=== PATIENT | male | born 1950 | race Caucasian/White ===

== ENCOUNTER 2020-08-02 11:19 | Outpatient (REF) | payer MEDICARE, SELFPAY ==
[2020-08-02 12:18] LABS: MANUAL DIFF FLAG NO
[2020-08-02 12:21] LABS: Basophils Percent Auto 0.4 % (0-2); Eosinophils Absolute Auto 0.1 X10*3/uL (0.0-0.4); Eosinophils Percent Auto 2.4 % (0-4); Hemoglobin 11.5 g/dl (14.0-18.0); Imm Gran Abs Auto 0.01 X10*3/uL (0.00-0.03); Imm Gran Pct Auto 0.2 % (0.0-0.4); Lymphocytes Absolute Auto 2.1 X10*3/uL (1.2-4.9); Lymphocytes Percent Auto 38.7 % (20-40); Mean Corpuscular HGB Conc 32.9 g/dl (31.0-36.0); Mean Corpuscular Hemoglobin 31.3 pg (27.0-33.0); Mean Corpuscular Volume 95.1 fL (80-98); Mean Platelet Volume 9.4 fL (9.4-12.4); Monocytes Absolute Auto 0.6 X10*3/uL (0.1-1.2); Monocytes Percent Auto 10.1 % (2-11); Neutrophils Absolute Auto 2.6 X10*3/uL (2.0-8.3); Neutrophils Percent Auto 48.2 % (45-73); Platelet Count 217 X10*3/uL (160-400); Red Blood Count 3.68 X10*6/uL (4.60-5.80); Red Cell Distribution Width 12.5 % (11.0-16.0); White Blood Count 5.4 X10*3/uL (4.8-10.8)
[2020-08-02 12:47] LABS: Glucose Urine UA NEG (NEG); Leukocyte Esterase Urine NEG (NEG); Nitrite Urine NEG (NEG); PH 6.5 (5.0-8.0); Urine Blood TRACE (NEG); Urine Ketones NEG (NEG); Urine Protein NEG (NEG-TRACE)
[2020-08-02 12:48] LABS: Appearance Urine HAZY; Color Urine YELLOW
[2020-08-02 12:59] LABS: Alanine Aminotransferase 18 U/L (0-40); Alkaline Phosphatase 51 U/L (39-117); Anion Gap 11 (12-20); Aspartate Amino Transferase 17 U/L (5-37); Bilirubin Total 0.6 mg/dL (0.0-1.0); Blood Urea Nitrogen 22 mg/dL (9-16); Calcium 9.2 mg/dL (8.4-10.2); Carbon Dioxide 27 mmol/L (22-29); Chloride 105 mmol/L (96-108); Cholesterol 119 mg/dL; Estimated Glomerular Filt Rate > 60; Glucose Fasting 193 mg/dL (60-99); HDL Cholesterol 51 mg/dL; LDL Cholesterol Calculated 58 mg/dl; Potassium 5.4 mmol/l (3.3-5.1); Sodium 138 mmol/L (135-145); Total Protein 6.1 g/dL (6.5-8.0); Triglycerides 51 mg/dL
[2020-08-02 13:04] LABS: RBC Urine 0-2 /HPF (0); Squamous Epithelial Cell Urine TRACE /LPF; WBC Urine 0 /HPF (0-4)
[2020-08-02 13:12] LABS: Creatinine Urine 103.56 mg/dL; Microalbum/Creatinine Ratio Ur 4.8 ug/mg cr
[2020-08-02 13:21] LABS: TSH reflex Free T4 2.22 mIU/mL (0.32-4.0)
[2020-08-02 13:27] LABS: Estimated Average Glucose 166 mg/dL; Hemoglobin A1c % 7.4 %
== END 2020-08-02 11:20 | disposition home or self-care (01) ==
LOC: HO.LABR 11:19
PROVIDERS: PCP Internal Medicine; Visit Provider Internal Medicine
DX: I12.9 Hypertensive chronic kidney disease with stage 1 through stage 4 chronic kidney disease, or unspecified chronic kidney disease (principal); E11.22 Type 2 diabetes mellitus with diabetic chronic kidney disease; N18.30 Chronic kidney disease, stage 3 unspecified; E78.5 Hyperlipidemia, unspecified; E66.3 Overweight
CPT/HCPCS: 36415; 80053; 80061; 81001; 82043; 83036; 84443; 85025

== ENCOUNTER 2020-12-06 09:58 | Outpatient (REF) | payer MEDICARE, SELFPAY ==
[2020-12-06 10:49] LABS: MANUAL DIFF FLAG NO
[2020-12-06 10:56] LABS: Basophils Percent Auto 0.3 % (0-2); Eosinophils Absolute Auto 0.2 X10*3/uL (0.0-0.4); Eosinophils Percent Auto 2.8 % (0-4); Hematocrit 33.9 % (42-52); Hemoglobin 11.6 g/dl (14.0-18.0); Imm Gran Abs Auto 0.02 X10*3/uL (0.00-0.03); Imm Gran Pct Auto 0.3 % (0.0-0.4); Lymphocytes Absolute Auto 2.4 X10*3/uL (1.2-4.9); Lymphocytes Percent Auto 39.9 % (20-40); Mean Corpuscular HGB Conc 34.2 g/dl (31.0-36.0); Mean Corpuscular Hemoglobin 31.2 pg (27.0-33.0); Mean Corpuscular Volume 91.1 fL (80-98); Mean Platelet Volume 9.8 fL (9.4-12.4); Monocytes Absolute Auto 0.6 X10*3/uL (0.1-1.2); Monocytes Percent Auto 9.7 % (2-11); Neutrophils Absolute Auto 2.9 X10*3/uL (2.0-8.3); Platelet Count 215 X10*3/uL (160-400); Red Blood Count 3.72 X10*6/uL (4.60-5.80); Red Cell Distribution Width 12.6 % (11.0-16.0); White Blood Count 6.1 X10*3/uL (4.8-10.8)
[2020-12-06 11:05] LABS: Glucose Urine UA NEG (NEG); Leukocyte Esterase Urine NEG (NEG); Nitrite Urine NEG (NEG); PH 6.5 (5.0-8.0); Urine Blood TRACE (NEG); Urine Ketones NEG (NEG); Urine Protein NEG (NEG-TRACE)
[2020-12-06 11:06] LABS: Appearance Urine CLEAR; Color Urine YELLOW
[2020-12-06 11:20] LABS: RBC Urine 0-2 /HPF (0); WBC Urine 0 /HPF (0-4)
[2020-12-06 11:21] LABS: Alanine Aminotransferase 19 U/L (0-40); Albumin Level 4.1 g/dL (3.5-5.0); Alkaline Phosphatase 58 U/L (39-117); Anion Gap 12 (12-20); Aspartate Amino Transferase 19 U/L (5-37); Bilirubin Total 0.7 mg/dL (0.0-1.0); Blood Urea Nitrogen 23 mg/dL (9-16); Calcium 9.1 mg/dL (8.4-10.2); Carbon Dioxide 26 mmol/L (22-29); Chloride 101 mmol/L (96-108); Cholesterol 124 mg/dL; Estimated Glomerular Filt Rate > 60; Glucose Fasting 196 mg/dL (60-99); HDL Cholesterol 54 mg/dL; LDL Cholesterol Calculated 57 mg/dl; Sodium 134 mmol/L (135-145); Total Protein 6.3 g/dL (6.5-8.0); Triglycerides 66 mg/dL
[2020-12-06 12:02] LABS: Creatinine Urine 86.19 mg/dL; Microalbumin Urine < 5.0 mg/L
== END 2020-12-06 09:59 | disposition home or self-care (01) ==
LOC: HO.LAB 09:58
PROVIDERS: PCP Internal Medicine; Visit Provider Internal Medicine
DX: E11.21 Type 2 diabetes mellitus with diabetic nephropathy (principal); I12.9 Hypertensive chronic kidney disease with stage 1 through stage 4 chronic kidney disease, or unspecified chronic kidney disease; N18.31 Chronic kidney disease, stage 3a; E78.00 Pure hypercholesterolemia, unspecified; E66.3 Overweight
CPT/HCPCS: 36415; 80053; 80061; 81001; 81003; 82043; 84443; 85025

== ENCOUNTER → 2021-01-09 15:07 | Outpatient (BNVA) | payer MEDICARE, SELFPAY | PROVIDERS: Visit Provider Orthopaedic Surgery | DX: M72.0 Palmar fascial fibromatosis [Dupuytren] (principal) | CPT/HCPCS: 99202 ==

== ENCOUNTER 2021-04-12 08:41 | Outpatient (REF) | payer MEDICARE, SELFPAY ==
[2021-04-12 09:24] LABS: MANUAL DIFF FLAG NO
[2021-04-12 09:29] LABS: Basophils Percent Auto 0.4 % (0-2); Eosinophils Absolute Auto 0.2 X10*3/uL (0.0-0.4); Eosinophils Percent Auto 2.6 % (0-4); Hemoglobin 11.5 g/dl (14.0-18.0); Imm Gran Abs Auto 0.02 X10*3/uL (0.00-0.03); Imm Gran Pct Auto 0.3 % (0.0-0.4); Lymphocytes Absolute Auto 2.8 X10*3/uL (1.2-4.9); Mean Corpuscular HGB Conc 32.9 g/dl (31.0-36.0); Mean Corpuscular Hemoglobin 31.2 pg (27.0-33.0); Mean Corpuscular Volume 94.9 fL (80-98); Mean Platelet Volume 9.5 fL (9.4-12.4); Monocytes Absolute Auto 0.8 X10*3/uL (0.1-1.2); Monocytes Percent Auto 9.4 % (2-11); Neutrophils Absolute Auto 4.2 X10*3/uL (2.0-8.3); Neutrophils Percent Auto 52.3 % (45-73); Platelet Count 208 X10*3/uL (160-400); Red Blood Count 3.69 X10*6/uL (4.60-5.80); Red Cell Distribution Width 13.2 % (11.0-16.0)
[2021-04-12 09:37] LABS: Estimated Average Glucose 180 mg/dL; Hemoglobin A1c % 7.9 %
[2021-04-12 09:52] LABS: Alanine Aminotransferase 18 U/L (0-40); Albumin Level 4.2 g/dL (3.5-5.0); Alkaline Phosphatase 51 U/L (39-117); Anion Gap 12 (12-20); Aspartate Amino Transferase 21 U/L (5-37); Bilirubin Total 0.9 mg/dL (0.0-1.0); Blood Urea Nitrogen 35 mg/dL (9-16); Calcium 9.6 mg/dL (8.4-10.2); Carbon Dioxide 25 mmol/L (22-29); Chloride 107 mmol/L (96-108); Cholesterol 117 mg/dL; Estimated Glomerular Filt Rate 56; Glucose Fasting 177 mg/dL (60-99); HDL Cholesterol 45 mg/dL; LDL Cholesterol Calculated 58 mg/dl; Potassium 4.7 mmol/L (3.3-5.1); Sodium 139 mmol/L (135-145); Total Protein 6.5 g/dL (6.5-8.0); Triglycerides 72 mg/dL
[2021-04-12 10:14] LABS: TSH reflex Free T4 1.75 uIU/mL (0.32-4.0)
[2021-04-12 11:18] LABS: Glucose Urine UA NEG (NEG); Leukocyte Esterase Urine NEG (NEG); Nitrite Urine NEG (NEG); Specific Gravity - Urine 1.025 (1.005-1.025); Urine Blood NEG (NEG); Urine Ketones 5 MG/DL (NEG); Urine Protein NEG (NEG-TRACE)
[2021-04-12 11:32] LABS: Appearance Urine CLEAR; Color Urine YELLOW; Microalbum/Creatinine Ratio Ur 13.1 ug/mg cr
== END 2021-04-12 08:42 | disposition home or self-care (01) ==
LOC: HO.LAB 08:41
PROVIDERS: PCP Internal Medicine; Visit Provider Internal Medicine
DX: I12.9 Hypertensive chronic kidney disease with stage 1 through stage 4 chronic kidney disease, or unspecified chronic kidney disease (principal); N18.31 Chronic kidney disease, stage 3a; E11.22 Type 2 diabetes mellitus with diabetic chronic kidney disease; E11.21 Type 2 diabetes mellitus with diabetic nephropathy; E78.00 Pure hypercholesterolemia, unspecified; E66.3 Overweight
CPT/HCPCS: 36415; 80053; 80061; 81003; 82043; 83036; 84443; 85025

== ENCOUNTER 2021-09-07 10:19 | Outpatient (REF) | payer MEDICARE, SELFPAY ==
[2021-09-07 10:31] LABS: MANUAL DIFF FLAG NO
[2021-09-07 10:53] LABS: Basophils Percent Auto 0.4 % (0-2); Eosinophils Absolute Auto 0.3 X10*3/uL (0.0-0.4); Eosinophils Percent Auto 4.4 % (0-4); Hematocrit 34.7 % (42.0-52.0); Hemoglobin 11.7 g/dl (14.0-18.0); Imm Gran Abs Auto 0.04 X10*3/uL (0.00-0.03); Imm Gran Pct Auto 0.5 % (0.0-0.4); Lymphocytes Absolute Auto 2.7 X10*3/uL (1.2-4.9); Lymphocytes Percent Auto 35.6 % (20-40); Mean Corpuscular HGB Conc 33.7 g/dl (31.0-36.0); Mean Corpuscular Hemoglobin 31.6 pg (27.0-33.0); Mean Corpuscular Volume 93.8 fL (80.0-98.0); Mean Platelet Volume 9.8 fL (9.4-12.4); Monocytes Absolute Auto 0.7 X10*3/uL (0.1-1.2); Monocytes Percent Auto 9.6 % (2-11); Neutrophils Absolute Auto 3.8 x10*3/uL (2.0-8.3); Neutrophils Percent Auto 49.5 % (45-73); Platelet Count 227 X10*3/uL (160-400); Red Cell Distribution Width 12.7 % (11.0-16.0); White Blood Count 7.7 X10*3/uL (4.8-10.8)
[2021-09-07 11:08] LABS: Estimated Average Glucose 189 mg/dL; Hemoglobin A1c % 8.2 %
[2021-09-07 11:27] LABS: Appearance Urine CLEAR; Color Urine YELLOW; Glucose Urine UA NEG (NEG); Leukocyte Esterase Urine NEG (NEG); Nitrite Urine NEG (NEG); PH 5.5 (5.0-8.0); UACC Culture Trigger NO; Urine Blood TRACE (NEG); Urine Ketones NEG (NEG); Urine Protein NEG (NEG-TRACE)
[2021-09-07 11:37] LABS: Squamous Epithelial Cell Urine TRACE /LPF; WBC Urine 0-2 /HPF (0-4)
[2021-09-07 11:48] LABS: Alanine Aminotransferase 20 U/L (0-40); Albumin Level 4.1 g/dL (3.5-5.0); Alkaline Phosphatase 58 U/L (39-117); Anion Gap 11 (12-20); Aspartate Amino Transferase 18 U/L (5-37); Bilirubin Total 0.7 mg/dL (0.0-1.0); Blood Urea Nitrogen 29 mg/dL (9-16); Calcium 9.5 mg/dL (8.4-10.2); Carbon Dioxide 26 mmol/L (22-29); Chloride 105 mmol/L (96-108); Cholesterol 129 mg/dL; Estimated Glomerular Filt Rate 59; Glucose Fasting 224 mg/dL (60-99); HDL Cholesterol 50 mg/dL; LDL Cholesterol Calculated 63 mg/dl; Potassium 4.8 mmol/L (3.3-5.1); Sodium 137 mmol/L (135-145); Total Protein 6.5 g/dL (6.5-8.0); Triglycerides 84 mg/dL
[2021-09-07 12:15] LABS: TSH reflex Free T4 3.12 uIU/mL (0.32-4.0)
[2021-09-07 12:19] LABS: Creatinine Urine 114.62 mg/dL; Microalbum/Creatinine Ratio Ur 5.2 ug/mg cr
== END 2021-09-07 10:20 | disposition home or self-care (01) ==
LOC: HO.LAB 10:19
PROVIDERS: PCP Internal Medicine; Visit Provider Internal Medicine
DX: I12.9 Hypertensive chronic kidney disease with stage 1 through stage 4 chronic kidney disease, or unspecified chronic kidney disease (principal); N18.31 Chronic kidney disease, stage 3a; E11.22 Type 2 diabetes mellitus with diabetic chronic kidney disease; E11.21 Type 2 diabetes mellitus with diabetic nephropathy; E66.3 Overweight; E78.00 Pure hypercholesterolemia, unspecified
CPT/HCPCS: 36415; 80053; 80061; 81001; 82043; 83036; 84443; 85025

== ENCOUNTER 2022-01-03 09:18 | Outpatient (REF) | payer OTHER, SELFPAY ==
[2022-01-03 09:46] LABS: MANUAL DIFF FLAG NO
[2022-01-03 10:02] LABS: Basophils Percent Auto 0.4 % (0-2); Eosinophils Absolute Auto 0.2 X10*3/uL (0.0-0.4); Hematocrit 34.6 % (42.0-52.0); Hemoglobin 11.5 g/dl (14.0-18.0); Imm Gran Abs Auto 0.03 X10*3/uL (0.00-0.03); Imm Gran Pct Auto 0.4 % (0.0-0.4); Lymphocytes Absolute Auto 2.7 X10*3/uL (1.2-4.9); Lymphocytes Percent Auto 34.6 % (20-40); Mean Corpuscular HGB Conc 33.2 g/dl (31.0-36.0); Mean Corpuscular Hemoglobin 30.7 pg (27.0-33.0); Mean Corpuscular Volume 92.5 fL (80.0-98.0); Mean Platelet Volume 9.5 fL (9.4-12.4); Monocytes Absolute Auto 0.7 X10*3/uL (0.1-1.2); Monocytes Percent Auto 9.4 % (2-11); Neutrophils Absolute Auto 4.2 x10*3/uL (2.0-8.3); Neutrophils Percent Auto 53.2 % (45-73); Platelet Count 226 X10*3/uL (160-400); Red Blood Count 3.74 X10*6/uL (4.60-5.80); Red Cell Distribution Width 12.8 % (11.0-16.0); White Blood Count 7.9 X10*3/uL (4.8-10.8)
[2022-01-03 10:39] LABS: Alanine Aminotransferase 22 U/L (0-40); Albumin Level 4.4 g/dL (3.5-5.0); Alkaline Phosphatase 57 U/L (39-117); Anion Gap 13 (12-20); Aspartate Amino Transferase 24 U/L (5-37); Bilirubin Total 0.8 mg/dL (0.0-1.0); Blood Urea Nitrogen 27 mg/dL (9-16); Calcium 9.7 mg/dL (8.4-10.2); Carbon Dioxide 24 mmol/L (22-29); Chloride 103 mmol/L (96-108); Cholesterol 134 mg/dL; Estimated Glomerular Filt Rate 48; Glucose Fasting 193 mg/dL (60-99); HDL Cholesterol 53 mg/dL; LDL Cholesterol Calculated 71 mg/dl; Sodium 135 mmol/L (135-145); Total Protein 6.9 g/dL (6.5-8.0); Triglycerides 50 mg/dL
[2022-01-03 10:44] LABS: Estimated Average Glucose 192 mg/dL; Hemoglobin A1c % 8.3 %
[2022-01-03 10:46] LABS: Appearance Urine CLEAR; Color Urine YELLOW; Glucose Urine UA NEG (NEG); Leukocyte Esterase Urine NEG (NEG); Nitrite Urine NEG (NEG); Urine Blood NEG (NEG); Urine Ketones NEG (NEG); Urine Protein NEG (NEG-TRACE)
[2022-01-03 10:53] LABS: TSH reflex Free T4 3.86 uIU/mL (0.32-4.0)
[2022-01-03 12:14] LABS: Creatinine Urine 129.68 mg/dL; Microalbum/Creatinine Ratio Ur 6.1 ug/mg cr
[2022-01-03 14:53] LABS: Vitamin D 25-OH Total 51.9 ng/mL (>30)
== END 2022-01-03 09:19 | disposition home or self-care (01) ==
LOC: HO.LAB 09:18
PROVIDERS: PCP Internal Medicine; Visit Provider Internal Medicine
DX: E78.00 Pure hypercholesterolemia, unspecified (principal); E55.9 Vitamin D deficiency, unspecified; E11.9 Type 2 diabetes mellitus without complications; I10 Essential (primary) hypertension
CPT/HCPCS: 36415; 80053; 80061; 81003; 82043; 82306; 83036; 84443; 85025

== ENCOUNTER 2022-03-25 09:52 | Outpatient (REF) | payer OTHER, SELFPAY ==
[2022-03-25 10:08] LABS: MANUAL DIFF FLAG NO
[2022-03-25 10:31] LABS: Basophils Percent Auto 0.5 % (0-2); Eosinophils Absolute Auto 0.2 X10*3/uL (0.0-0.4); Eosinophils Percent Auto 3.4 % (0-4); Hematocrit 32.8 % (42.0-52.0); Imm Gran Abs Auto 0.01 X10*3/uL (0.00-0.03); Imm Gran Pct Auto 0.2 % (0.0-0.4); Lymphocytes Absolute Auto 2.4 X10*3/uL (1.2-4.9); Lymphocytes Percent Auto 38.5 % (20-40); Mean Corpuscular HGB Conc 33.5 g/dl (31.0-36.0); Mean Corpuscular Hemoglobin 31.1 pg (27.0-33.0); Mean Corpuscular Volume 92.7 fL (80.0-98.0); Mean Platelet Volume 9.5 fL (9.4-12.4); Monocytes Absolute Auto 0.5 X10*3/uL (0.1-1.2); Monocytes Percent Auto 8.4 % (2-11); Neutrophils Absolute Auto 3.1 x10*3/uL (2.0-8.3); Platelet Count 210 X10*3/uL (160-400); Red Blood Count 3.54 X10*6/uL (4.60-5.80); Red Cell Distribution Width 12.7 % (11.0-16.0); White Blood Count 6.2 X10*3/uL (4.8-10.8)
[2022-03-25 11:00] LABS: Alanine Aminotransferase 21 U/L (0-40); Alkaline Phosphatase 53 U/L (39-117); Anion Gap 10 (12-20); Aspartate Amino Transferase 19 U/L (5-37); Bilirubin Total 0.6 mg/dL (0.0-1.0); Blood Urea Nitrogen 29 mg/dL (9-16); Calcium 9.3 mg/dL (8.4-10.2); Carbon Dioxide 25 mmol/L (22-29); Chloride 106 mmol/L (96-108); Cholesterol 117 mg/dL; Estimated Glomerular Filt Rate 56; Glucose Fasting 185 mg/dL (60-99); HDL Cholesterol 49 mg/dL; Iron 70 mcg/dL (45-160); LDL Cholesterol Calculated 58 mg/dl; Percent Iron Saturation 22 % (15-50); Potassium 5.4 mmol/L (3.3-5.1); Sodium 136 mmol/L (135-145); Total Iron Binding Capacity 320 mcg/dL (228-428); Total Protein 6.3 g/dL (6.5-8.0); Triglycerides 50 mg/dL; Unsaturated Iron Binding 250 ug/dL
[2022-03-25 11:06] LABS: Estimated Average Glucose 189 mg/dL; Hemoglobin A1c % 8.2 %
[2022-03-25 11:09] LABS: Appearance Urine CLEAR; Color Urine YELLOW; Glucose Urine UA NEG (NEG); Leukocyte Esterase Urine NEG (NEG); Nitrite Urine NEG (NEG); PH 5.5 (5.0-8.0); UACC Culture Trigger NO; Urine Blood TRACE (NEG); Urine Ketones NEG (NEG); Urine Protein NEG (NEG-TRACE)
[2022-03-25 11:21] LABS: Vitamin D 25-OH Total 42.7 ng/mL (>30)
[2022-03-25 11:22] LABS: Creatinine Urine 94.96 mg/dL; Microalbum/Creatinine Ratio Ur 6.3 ug/mg cr
[2022-03-25 11:27] LABS: Folate 19.1 ng/mL (> or = 4.0); Vitamin B12 670 pg/mL (200-900)
[2022-03-25 11:34] LABS: Renal Epithelial Cells Urine 1+ /LPF; WBC Urine 0 /HPF (0-4)
[2022-03-26 13:20] LABS: Erythropoietin (EPO) 13.4 mIU/mL (2.6-18.5)
== END 2022-03-25 09:53 | disposition home or self-care (01) ==
LOC: HO.LAB 09:52
PROVIDERS: PCP Internal Medicine; Visit Provider Internal Medicine
DX: E78.00 Pure hypercholesterolemia, unspecified (principal); I10 Essential (primary) hypertension; E11.9 Type 2 diabetes mellitus without complications; D50.9 Iron deficiency anemia, unspecified; E53.8 Deficiency of other specified B group vitamins; E55.9 Vitamin D deficiency, unspecified
CPT/HCPCS: 36415; 80053; 80061; 81001; 81003; 82043; 82306; 82607; 82668; 82746; 83036; 83540; 84443; 85025

== ENCOUNTER 2022-07-15 09:20 | Outpatient (REF) | payer OTHER, SELFPAY ==
[2022-07-15 09:33] LABS: MANUAL DIFF FLAG NO
[2022-07-15 10:20] LABS: Appearance Urine Clear; Color Urine Yellow; Glucose Urine UA Negative (Negative); Leukocyte Esterase Urine Negative (Negative); Nitrite Urine Negative (Negative); PH 5.5 (5.0-9.0); Urine Blood Negative (Negative); Urine Ketones Negative (Negative); Urine Protein Negative (Neg-Trace)
[2022-07-15 10:23] LABS: Basophils Percent Auto 0.4 % (0-2); Eosinophils Absolute Auto 0.2 X10*3/uL (0.0-0.4); Hematocrit 34.1 % (42.0-52.0); Hemoglobin 11.3 g/dl (14.0-18.0); Imm Gran Abs Auto 0.04 X10*3/uL (0.00-0.03); Imm Gran Pct Auto 0.4 % (0.0-0.4); Lymphocytes Absolute Auto 2.6 X10*3/uL (1.2-4.9); Lymphocytes Percent Auto 27.2 % (20-40); Mean Corpuscular HGB Conc 33.1 g/dl (31.0-36.0); Mean Corpuscular Hemoglobin 30.9 pg (27.0-33.0); Mean Corpuscular Volume 93.2 fL (80.0-98.0); Mean Platelet Volume 9.9 fL (9.4-12.4); Monocytes Absolute Auto 0.9 X10*3/uL (0.1-1.2); Monocytes Percent Auto 9.8 % (2-11); Neutrophils Absolute Auto 5.8 x10*3/uL (2.0-8.3); Neutrophils Percent Auto 60.2 % (45-73); Platelet Count 238 X10*3/uL (160-400); Red Blood Count 3.66 X10*6/uL (4.60-5.80); Red Cell Distribution Width 13.2 % (11.0-16.0); White Blood Count 9.6 X10*3/uL (4.8-10.8)
[2022-07-15 10:35] LABS: Estimated Average Glucose 177 mg/dL; Hemoglobin A1c % 7.8 %
[2022-07-15 10:55] LABS: Alanine Aminotransferase 20 U/L (0-40); Albumin Level 4.3 g/dL (3.5-5.0); Alkaline Phosphatase 65 U/L (39-117); Anion Gap 16 (12-20); Aspartate Amino Transferase 20 U/L (5-37); Bilirubin Total 0.5 mg/dL (0.0-1.0); Blood Urea Nitrogen 22 mg/dL (9-16); Calcium 9.4 mg/dL (8.4-10.2); Carbon Dioxide 25 mmol/L (22-29); Chloride 101 mmol/L (96-108); Cholesterol 108 mg/dL; Estimated Glomerular Filt Rate 56; Glucose Fasting 174 mg/dL (60-99); HDL Cholesterol 49 mg/dL; LDL Cholesterol Calculated 46 mg/dl; Potassium 5.4 mmol/L (3.3-5.1); Sodium 137 mmol/L (135-145); Total Protein 6.6 g/dL (6.5-8.0); Triglycerides 67 mg/dL
[2022-07-15 10:57] LABS: Creatinine Urine 119.14 mg/dL; Microalbum/Creatinine Ratio Ur 9.2 ug/mg cr
[2022-07-15 11:17] LABS: TSH reflex Free T4 4.07 uIU/mL (0.32-4.0); Vitamin D 25-OH Total 48.6 ng/mL (>30)
[2022-07-15 11:59] LABS: Free T4 (Free Thyroxine) 0.97 ng/dL (0.71-1.85)
== END 2022-07-15 09:21 | disposition home or self-care (01) ==
LOC: HO.LAB 09:20
PROVIDERS: PCP Internal Medicine; Visit Provider Internal Medicine
DX: E55.9 Vitamin D deficiency, unspecified (principal); E78.00 Pure hypercholesterolemia, unspecified; E11.9 Type 2 diabetes mellitus without complications; I10 Essential (primary) hypertension
CPT/HCPCS: 36415; 80053; 80061; 81003; 82043; 82306; 83036; 84439; 84443; 85025

== ENCOUNTER 2022-11-11 11:05 | Outpatient (REF) | payer OTHER, SELFPAY ==
[2022-11-11 11:24] LABS: MANUAL DIFF FLAG NO
[2022-11-11 12:10] LABS: Basophils Percent Auto 0.4 % (0-2); Eosinophils Absolute Auto 0.2 X10*3/uL (0.0-0.4); Eosinophils Percent Auto 2.9 % (0-4); Hematocrit 35.8 % (42.0-52.0); Hemoglobin 12.1 g/dl (14.0-18.0); Imm Gran Abs Auto 0.03 X10*3/uL (0.00-0.03); Imm Gran Pct Auto 0.4 % (0.0-0.4); Lymphocytes Percent Auto 40.4 % (20-40); Mean Corpuscular HGB Conc 33.8 g/dl (31.0-36.0); Mean Corpuscular Hemoglobin 31.1 pg (27.0-33.0); Mean Platelet Volume 9.7 fL (9.4-12.4); Monocytes Absolute Auto 0.6 X10*3/uL (0.1-1.2); Monocytes Percent Auto 8.2 % (2-11); Neutrophils Absolute Auto 3.6 x10*3/uL (2.0-8.3); Neutrophils Percent Auto 47.7 % (45-73); Platelet Count 232 X10*3/uL (160-400); Red Blood Count 3.89 X10*6/uL (4.60-5.80); Red Cell Distribution Width 12.8 % (11.0-16.0); White Blood Count 7.5 X10*3/uL (4.8-10.8)
[2022-11-11 12:15] LABS: Appearance Urine Clear; Color Urine Yellow; Glucose Urine UA Negative (Negative); Leukocyte Esterase Urine Negative (Negative); Nitrite Urine Negative (Negative); Urine Blood Negative (Negative); Urine Ketones Negative (Negative); Urine Protein Negative (Neg-Trace)
[2022-11-11 12:22] LABS: Estimated Average Glucose 212 mg/dL
[2022-11-11 12:54] LABS: Alanine Aminotransferase 17 U/L (0-40); Albumin Level 4.1 g/dL (3.5-5.0); Alkaline Phosphatase 63 U/L (39-117); Anion Gap 13 (12-20); Aspartate Amino Transferase 18 U/L (5-37); Bilirubin Total 0.7 mg/dL (0.0-1.0); Blood Urea Nitrogen 22 mg/dL (9-16); Calcium 9.5 mg/dL (8.4-10.2); Carbon Dioxide 26 mmol/L (22-29); Chloride 104 mmol/L (96-108); Cholesterol 123 mg/dL; Estimated Glomerular Filt Rate 58; Glucose Fasting 196 mg/dL (60-99); HDL Cholesterol 48 mg/dL; LDL Cholesterol Calculated 60 mg/dl; Potassium 4.7 mmol/L (3.3-5.1); Sodium 138 mmol/L (135-145); Total Protein 6.4 g/dL (6.5-8.0); Triglycerides 76 mg/dL
[2022-11-11 13:06] LABS: Creatinine Urine 145.59 mg/dL; Microalbum/Creatinine Ratio Ur 22.6 ug/mg cr
[2022-11-11 13:10] LABS: TSH reflex Free T4 4.58 uIU/mL (0.32-4.0)
[2022-11-11 15:36] LABS: Free T4 (Free Thyroxine) 0.98 ng/dL (0.71-1.85)
== END 2022-11-11 11:06 | disposition home or self-care (01) ==
LOC: HO.LAB 11:05
PROVIDERS: PCP Internal Medicine; Visit Provider Internal Medicine
DX: E78.00 Pure hypercholesterolemia, unspecified (principal); E11.9 Type 2 diabetes mellitus without complications; I10 Essential (primary) hypertension; R30.0 Dysuria; E55.9 Vitamin D deficiency, unspecified
CPT/HCPCS: 36415; 80053; 80061; 81003; 82043; 82306; 83036; 84439; 84443; 85025

== ENCOUNTER 2023-02-20 10:42 | Outpatient (REF) | payer OTHER, SELFPAY ==
[2023-02-20 10:55] LABS: MANUAL DIFF FLAG NO
[2023-02-20 11:02] LABS: Basophils Percent Auto 0.5 % (0-2); Eosinophils Absolute Auto 0.3 X10*3/uL (0.0-0.4); Eosinophils Percent Auto 3.9 % (0-4); Hematocrit 34.7 % (42.0-52.0); Hemoglobin 11.6 g/dl (14.0-18.0); Imm Gran Abs Auto 0.01 X10*3/uL (0.00-0.03); Imm Gran Pct Auto 0.2 % (0.0-0.4); Lymphocytes Absolute Auto 2.5 X10*3/uL (1.2-4.9); Lymphocytes Percent Auto 38.2 % (20-40); Mean Corpuscular HGB Conc 33.4 g/dl (31.0-36.0); Mean Corpuscular Hemoglobin 30.8 pg (27.0-33.0); Mean Platelet Volume 9.1 fL (9.4-12.4); Monocytes Absolute Auto 0.6 X10*3/uL (0.1-1.2); Monocytes Percent Auto 9.2 % (2-11); Neutrophils Absolute Auto 3.1 x10*3/uL (2.0-8.3); Platelet Count 222 X10*3/uL (160-400); Red Blood Count 3.77 X10*6/uL (4.60-5.80); Red Cell Distribution Width 12.8 % (11.0-16.0); White Blood Count 6.4 X10*3/uL (4.8-10.8)
[2023-02-20 11:13] LABS: Estimated Average Glucose 197 mg/dL; Hemoglobin A1c % 8.5 %
[2023-02-20 12:13] LABS: Alanine Aminotransferase 19 U/L (0-40); Albumin Level 4.2 g/dL (3.5-5.0); Alkaline Phosphatase 57 U/L (39-117); Anion Gap 13 (12-20); Aspartate Amino Transferase 23 U/L (5-37); Bilirubin Total 0.9 mg/dL (0.0-1.0); Blood Urea Nitrogen 26 mg/dL (9-16); Calcium 9.4 mg/dL (8.4-10.2); Carbon Dioxide 25 mmol/L (22-29); Chloride 104 mmol/L (96-108); Cholesterol 114 mg/dL; Estimated Glomerular Filt Rate 52; Glucose Fasting 175 mg/dL (60-99); HDL Cholesterol 50 mg/dL; LDL Cholesterol Calculated 57 mg/dl; Potassium 4.9 mmol/L (3.3-5.1); Sodium 137 mmol/L (135-145); Total Protein 6.4 g/dL (6.5-8.0); Triglycerides 35 mg/dL
[2023-02-20 12:34] LABS: Vitamin D 25-OH Total 54.5 ng/mL (>30)
[2023-02-20 12:35] LABS: Appearance Urine Clear; Color Urine Yellow; Glucose Urine UA Negative (Negative); Leukocyte Esterase Urine Negative (Negative); Nitrite Urine Negative (Negative); PH 5.5 (5.0-9.0); Specific Gravity - Urine 1.025 (1.005-1.025); Urine Blood Negative (Negative); Urine Ketones Trace mg/dL (Negative); Urine Protein Negative (Neg-Trace)
[2023-02-20 13:10] LABS: Creatinine Urine 203.72 mg/dL; Microalbum/Creatinine Ratio Ur 3.9 ug/mg cr
[2023-02-20 15:01] LABS: Free T4 (Free Thyroxine) 1.06 ng/dL (0.71-1.85)
== END 2023-02-20 10:43 | disposition home or self-care (01) ==
LOC: HO.LAB 10:42
PROVIDERS: PCP Internal Medicine; Visit Provider Internal Medicine
DX: R30.0 Dysuria (principal); E78.00 Pure hypercholesterolemia, unspecified; E11.9 Type 2 diabetes mellitus without complications; I10 Essential (primary) hypertension; E55.9 Vitamin D deficiency, unspecified
CPT/HCPCS: 36415; 80053; 80061; 81003; 82043; 82306; 83036; 84439; 84443; 85025

== ENCOUNTER 2023-06-02 09:48 | Outpatient (REF) | payer OTHER, SELFPAY ==
[2023-06-02 10:01] LABS: MANUAL DIFF FLAG NO
[2023-06-02 10:16] LABS: Basophils Percent Auto 0.6 % (0-2); Eosinophils Absolute Auto 0.2 X10*3/uL (0.0-0.4); Eosinophils Percent Auto 3.6 % (0-4); Hematocrit 33.7 % (42.0-52.0); Hemoglobin 11.2 g/dl (14.0-18.0); Imm Gran Abs Auto 0.02 X10*3/uL (0.00-0.03); Imm Gran Pct Auto 0.3 % (0.0-0.4); Lymphocytes Absolute Auto 2.5 X10*3/uL (1.2-4.9); Lymphocytes Percent Auto 37.7 % (20-40); Mean Corpuscular HGB Conc 33.2 g/dl (31.0-36.0); Mean Corpuscular Hemoglobin 31.4 pg (27.0-33.0); Mean Corpuscular Volume 94.4 fL (80.0-98.0); Mean Platelet Volume 9.5 fL (9.4-12.4); Monocytes Absolute Auto 0.6 X10*3/uL (0.1-1.2); Monocytes Percent Auto 8.9 % (2-11); Neutrophils Absolute Auto 3.2 x10*3/uL (2.0-8.3); Neutrophils Percent Auto 48.9 % (45-73); Platelet Count 238 X10*3/uL (160-400); Red Blood Count 3.57 X10*6/uL (4.60-5.80); Red Cell Distribution Width 13.1 % (11.0-16.0); White Blood Count 6.6 X10*3/uL (4.8-10.8)
[2023-06-02 10:48] LABS: Alanine Aminotransferase 15 U/L (0-40); Albumin Level 3.9 g/dL (3.5-5.0); Alkaline Phosphatase 47 U/L (39-117); Anion Gap 10 (12-20); Aspartate Amino Transferase 17 U/L (5-37); Bilirubin Total 0.5 mg/dL (0.0-1.0); Blood Urea Nitrogen 23 mg/dL (9-16); Calcium 9.6 mg/dL (8.4-10.2); Carbon Dioxide 27 mmol/L (22-29); Chloride 108 mmol/L (96-108); Cholesterol 115 mg/dL (<200); Estimated Glomerular Filt Rate 57; Glucose Fasting 141 mg/dL (60-99); HDL Cholesterol 52 mg/dL (>40); LDL Cholesterol Calculated 52 mg/dL (<100); Potassium 5.1 mmol/L (3.3-5.1); Sodium 140 mmol/L (135-145); Total Protein 6.4 g/dL (6.5-8.0); Triglycerides 57 mg/dL (<150)
[2023-06-02 10:50] LABS: Estimated Average Glucose 189 mg/dL; Hemoglobin A1c % 8.2 % (<6.0)
[2023-06-02 11:04] LABS: TSH reflex Free T4 4.24 uIU/mL (0.32-4.0); Vitamin D 25-OH Total 58.5 ng/mL (>30)
[2023-06-02 11:16] LABS: Folate 12.8 ng/mL (> or = 4.0); Vitamin B12 786 pg/mL (200-900)
[2023-06-02 11:48] LABS: Free T4 (Free Thyroxine) 0.82 ng/dL (0.71-1.85)
[2023-06-02 12:22] LABS: Appearance Urine Clear; Color Urine Yellow; Glucose Urine UA Negative (Negative); Leukocyte Esterase Urine Trace (Negative); Nitrite Urine Negative (Negative); PH 5.5 (5.0-9.0); UMIC TRIGGER UACC YES; Urine Blood Negative (Negative); Urine Ketones Trace mg/dL (Negative); Urine Protein Negative (Neg-Trace)
[2023-06-02 12:31] LABS: Bacteria Urine None Seen (None Seen); Hyaline Casts Urine 0-2 /LPF (0-2); RBC Urine 0-2 /HPF (0-2); Squamous Epithelial Cell Urine 0-2 /HPF (0-2); WBC Urine 0-5 /HPF (0-5)
[2023-06-02 13:33] LABS: Creatinine Urine 148.69 mg/dL
== END 2023-06-02 09:49 | disposition home or self-care (01) ==
LOC: HO.LAB 09:48
PROVIDERS: PCP Internal Medicine; Visit Provider Internal Medicine
DX: E55.9 Vitamin D deficiency, unspecified (principal); I10 Essential (primary) hypertension; E11.9 Type 2 diabetes mellitus without complications; E53.8 Deficiency of other specified B group vitamins; E78.00 Pure hypercholesterolemia, unspecified
CPT/HCPCS: 36415; 80053; 80061; 81001; 82043; 82306; 82607; 82746; 83036; 84439; 84443; 85025

== ENCOUNTER 2023-06-03 17:03 | Outpatient (AMB) | payer OTHER, SELFPAY ==
[2023-06-03 17:05] VITALS: BP 110/80; PULSE 67; O2SAT 98; BMI 23.8
--- NOTE | 2023-06-03 17:05 | A.OFFPC_ITS ---
Vital Signs 06/03/23 17:05 Height 5 ft 6 in Weight 147 lb 6 oz BMI 23.8 BP 110/80 Blood Pressure Location Lt brachial Position Sitting Pulse 67 Pulse Source Pulse Oximeter Pulse Oximetry (%) 98 Oxygen Delivery Method Room Air Intake Visit Reasons: DM, HTN, hyperlipidemia [employer] Required: No Accompanied by: Self / Same As Patient Allergies aspirin [Aspirin] Adverse Reaction (Severe, Verified 06/03/23 17:15) GI BLEEDING, GI bleed Medication List - Last Reconciled 06/03/23 by Umesh Sanchez MD atorvastatin 20 mg PO DAILY blood sugar diagnostic As directed- One touch strips use daily blood-glucose meter As directed- One Touch use daily [DIABETIC SHOES As directed] glipizide TAKE 1 TABLET BY MOUTH EVERY MORNING AND 2 TABLETS EVERY EVENING; lancets As directed One Touch use daily linagliptin (Tradjenta) 5 mg PO DAILY 90 days lisinopril 10 mg PO DAILY metformin 1,000 mg PO BID multivitamin (Daily Multi-Vitamin tablet) 1 tab PO DAILY pioglitazone 45 mg PO DAILY 90 days Tobacco use date assessed: 06/03/23 Fall risk assessment: No Falls in past year Last assessed Fall Risk: 06/03/23 Dental Screening Dental Screen Date: 06/03/23 Did you have a dental visit in the last 12 months?: Yes Did you have a dental problem in the last 6 months where you did not have access to dental care?: No Was dental information given to patient?: Patient has dentist HPI DM, HTN, hyperlipidemia HPI Details Patient comes in today for his follow up visit States that he feels okay He denies any headaches or dizziness Denies any chest pains, no SOB No nausea/vomiting, no abdominal pain No change in bowel habits noted Had his follow up labs done yesterday - to discuss his results [facility] Medical History Anemia Benign essential hypertension Chronic kidney disease (CKD), stage III (moderate) Dupuytren's contracture of both hands Overweight (BMI 25.0-29.9) Pure hypercholesterolemia Type 2 diabetes mellitus with diabetic chronic kidney disease Surgical History Hx of colonoscopy (~07/20/10) Family History Father Medical history unknown Mother Medical history unknown Social History Housing: House Alcohol intake: never Patient Tobacco Use Status: Former Tobacco user e-Cigarette/Vaping Use: Never Used Second Hand Smoke Exposure: Yes Current occupational status: retired Current occupation: retired [employer] Cognitive needs: No Hearing needs: Yes Vision needs: No Questionnaire PHQ-9 Over the last 2 weeks, how often have you been bothered by any of the following problems? 1. Little interest or pleasure in doing things: not at all 2. Feeling down, depressed, or hopeless: not at all 3. Trouble falling or staying asleep, or sleeping too much: not at all 4. Feeling tired or having little energy: not at all 5. Poor appetite or overeating: not at all 6. Feeling bad about yourself - or that you are a failure or have let yourself or your family down: not at all 7. Trouble concentrating on things, such as reading the newspaper or watching television: not at all 8. Moving or speaking so slowly that other people could have noticed. Or the opposite - being so fidgety or restless that you have been moving around a lot more than usual: not at all 9. Thoughts that you would be better off or of hurting yourself in some way: not at all Total score: 0 Depression Screening Interpretation: Negative 50183 - PHQ-9 Billing: Yes Source: Developed by Drs. Rudi Jerry, Savi Truong, Pawel Pro and colleagues, with an educational julia from [employer]. Thrive Questionnaire Date Thrive assessed: 06/03/23 I am a: Patient What is your living situation today?: I have a steady place to live Within the past 12 months, did the food you bought not last and you didn't have the money to get more?: Never true Within the past 12 months, did you worry whether your food would run out before you got money to buy more?: Never true Do you have trouble paying for medicines?: No Do you have trouble getting transportation to medical appointments?: No Do you have trouble paying your heating and electricity bill?: No Do you have trouble taking care of your child, family member or friend?: No Do you have trouble with day-to-day activities such as bathing, preparing meals, shopping, managing finances, etc.?: No Are you currently unemployed and looking for a job?: No Are you interested in more education?: No Please select the resources that you would like help with: None Currently or been in a relationship where the following occur: no concerns reported AUDIT C Alcohol Use Questionnaire (AUDIT-C) 1. How often do you have a drink containing alcohol?: Never 3. How often do you have six or more drinks on one occasion?: Never Total Score: 0 Score Reviewed/Action Taken: Yes KEATON-7 AMB Questionnaire KEATON-7 Date KEATON - 7 assessed: 06/03/23 Feeling nervous, anxious, or on edge: 0 = Not at all Not being able to stop or control worryin = Not at all Worrying too much about different things: 0 = Not at all Trouble relaxin = Not at all Being so restless that it is hard to sit still: 0 = Not at all Becoming easily annoyed or irritable: 0 = Not at all Feeling afraid as if something awful might happen: 0 = Not at all Total KEATON-7 score (0-4 normal; 5-9 mild; 10-14 moderate; 15-21 severe): 0 Source: Developed by Drs. Rudi Jerry, Savi Truong, Pawel Pro and colleagues, with an educational julia from [employer]. Review of Systems Const Denies fatigue, Denies fever(s) and Denies headache(s) ENT Denies dysphagia, Denies dizziness, Denies otalgia, Denies headache(s), Denies neck pain and Denies sore throat Card Denies chest pain, Denies palpitations and Denies dyspnea Resp Denies cough, Denies dyspnea and Denies wheezing GI Denies abdominal pain, Denies constipation, Denies dysphagia, Denies heartburn, Denies diarrhea, Denies nausea and Denies vomiting Denies dysuria, Denies nocturia and Denies urinary frequency Musc Denies back pain, Denies joint swelling and Denies neck pain Skin/Breast Denies rash Neuro Denies dizziness and Denies headache(s) Endo Denies fatigue and Denies palpitations Aller/Immun Denies wheezing Physical exam (Primary Care) Vital Signs: Last Vital Signs Pulse 67 06/03/23 17:05 BP 110/80 06/03/23 17:05 Pulse Ox 98 06/03/23 17:05 Oxygen Delivery Method Room Air 06/03/23 17:05 BMI result Body Mass Index 23.8 Tobacco/Smoking Status: Tobacco use Status Tobacco use date assessed 06/03/23 06/03/23 17:10 Patient Tobacco Use Status Former Tobacco user 06/03/23 17:10 e-Cigarette/Vaping Use Never Used 06/03/23 17:10 PHQ-9: PHQ-9 Score PHQ-9: Total score 0 06/03/23 17:19 Depression Screening Interpretation: Negative Thrive Assessment: Date of Thrive Assessment Date Thrive assessed 06/03/23 06/03/23 17:10 Currently or been in a relationship where the following occur: no concerns reported Const General: no acute distress and alert HENMT Ears: TM's normal bilaterally and EAC's normal Throat: Yes posterior oropharynx normal and Yes tonsils normal (no TP congestion noted) Neck Neck: Yes no lymphadenopathy and Yes supple Resp Auscultation: clear to auscultation bilaterally, no rales and no wheezes Cardio Rate: regular rate Rhythm: regular rhythm Heart sounds: no murmurs GI Palpation (GI): Soft to palpation and nontender Auscultation: normal bowel sounds Extrem General: Yes no clubbing, cyanosis or edema Results Reviewed Results Reviewed: Laboratory Tests 06/02/23 06/02/23 06/02/23 09:58 10:00 10:00 WBC 6.6 Hgb 11.2 L Hct 33.7 L Plt Count 238 Sodium 140 Potassium 5.1 Creatinine 1.24 Estimated GFR 57 Fasting Glucose 141 H Hemoglobin A1c % Calcium 9.6 AST 17 ALT 15 Triglycerides 57 Cholesterol 115 LDL Cholesterol, Calc 52 HDL Cholesterol 52 Vitamin B12 25-OH Vitamin D Total 58.5 TSH 4.24 H Free T4 0.82 Ur Specific [place] Urine Protein Urine Glucose (UA) Urine Blood Microalb/Creat Ratio 6.0 06/02/23 06/02/23 06/02/23 10:00 10:00 11:24 WBC Hgb Hct Plt Count Sodium Potassium Creatinine Estimated GFR Fasting Glucose Hemoglobin A1c % 8.2 H Calcium AST ALT Triglycerides Cholesterol LDL Cholesterol, Calc HDL Cholesterol Vitamin B12 786 25-OH Vitamin D Total TSH Free T4 Ur Specific [place] 1.020 Urine Protein Negative Urine Glucose (UA) Negative Urine Blood Negative Microalb/Creat Ratio Assessment and Plan Assessment & Plan (1) Pure hypercholesterolemia: Code(s): E78.00 - Pure hypercholesterolemia, unspecified Plan: Results of his labs done yesterday reviewed and discussed with patient Reinforced low cholesterol diet Continue Atorvastatin 20 mg QD Will recheck his labs in 4 months for follow-up (2) Type 2 diabetes mellitus with diabetic chronic kidney disease: Code(s): E11.22 - Type 2 diabetes mellitus with diabetic chronic kidney disease Qualifiers: Chronic kidney disease stage: stage 3 (moderate) Chronic kidney disease stage 3 subtype: stage 3a (GFR 45-59) Diabetes mellitus [facility] insulin use: without terminal gauger use Qualified Code(s): E11.21 - Type 2 diabetes mellitus with diabetic nephropathy; N18.31 - Chronic kidney disease, stage 3a Plan: HgbA1c is at 8.2% on his labs done yesterday (was at 8.5% a few months ago) - goal is <7.0% Reinforced diabetic diet Continue Pioglitazone 45 mg QD, Metformin 1000 mg BID, Glipizide 5 mg 1 tablet in AM and 2 tablets in PM and Tradjenta 5 mg QD Was Trulicity 1.5 mg SQ once a week but states that he can no longer afford the $86/month co-pay that his insurance is requiring him to cover Could also not afford Januvia, which he was also on in the past (3) Chronic kidney disease (CKD), stage III (moderate): Code(s): N18.30 - Chronic kidney disease, stage 3 unspecified Qualifiers: Chronic kidney disease stage 3 subtype: stage 3a (GFR 45-59) Qualified Code(s): N18.31 - Chronic kidney disease, stage 3a Plan: His renal function appears stable on his recent labs Emphasized again that the goal is to preserve his renal function for as long as possible and the best way to do this is with tight control of his diabetes and hypertension Reminded again of our previous discussions that if his renal function continues to decline, we may need to take him off his Metformin (if creatinine > 1.5) Will continue to monitor GFR and renal function closely (4) Benign essential hypertension: Code(s): I10 - Essential (primary) hypertension Plan: Reinforced low sodium diet - goal is systolic BP of at least 130 to 140 mm or less in light of his CKD Continue Lisinopril 10 mg QD (5) Anemia: Code(s): D64.9 - Anemia, unspecified Qualifiers: Anemia type: unspecified type Qualified Code(s): D64.9 - Anemia, unspecified Plan: Mild, stable - is most likely due to CKD / anemia of chronic disease Will continue to monitor his CBC regularly (6) Dupuytren's contracture of both hands: Code(s): 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 Panel Fast 4 Months E78.00 - Pure hypercholesterolemia, unspecified Hemoglobin A1c 4 Months E11.9 - Type 2 diabetes mellitus without complications Lipid Panel 4 Months E78.00 - Pure hypercholesterolemia, unspecified Complete Blood Count Auto Diff 4 Months I10 - Essential (primary) hypertension Vitamin B12 and Folate 4 Months E53.8 - Deficiency of other specified B group vitamins Erythropoietin (EPO) 4 Months D64.9 - Anemia, unspecified Vitamin D 25-OH Total 4 Months E55.9 - Vitamin D deficiency, unspecified Microalbumin, Random (w Creat) 4 Months E11.9 - Type 2 diabetes mellitus without complications UA CC w/rflx Micro + Cult 4 Months R30.0 - Dysuria Coding Level of Care Code Est Pt Level 4 (54235) Diagnoses Pure hypercholesterolemia E78.00 Type 2 diabetes mellitus with diabetic chronic kidney disease E11.21; N18.31 Chronic kidney disease stage: stage 3 (moderate) Chronic kidney disease stage 3 subtype: stage 3a (GFR 45-59) Diabetes mellitus [facility] insulin use: without terminal gauger use Chronic kidney disease (CKD), stage III (moderate) N18.31 Chronic kidney disease stage 3 subtype: stage 3a (GFR 45-59) Benign essential hypertension I10 Anemia D64.9 Anemia type: unspecified type Dupuytren's contracture of both hands M72.0
== END 2023-06-03 17:33 | disposition home or self-care (01) ==
PROVIDERS: Visit Provider Internal Medicine
DX: E78.00 Pure hypercholesterolemia, unspecified (principal); E11.21 Type 2 diabetes mellitus with diabetic nephropathy; I12.9 Hypertensive chronic kidney disease with stage 1 through stage 4 chronic kidney disease, or unspecified chronic kidney disease; N18.31 Chronic kidney disease, stage 3a; D64.9 Anemia, unspecified; M72.0 Palmar fascial fibromatosis [Dupuytren]
CPT/HCPCS: 99214

== ENCOUNTER 2023-09-29 09:59 | Outpatient (REF) | payer OTHER, SELFPAY ==
[2023-09-29 10:15] LABS: MANUAL DIFF FLAG NO
[2023-09-29 10:30] LABS: Basophils Percent Auto 0.4 % (0-2); Eosinophils Absolute Auto 0.2 X10*3/uL (0.0-0.4); Eosinophils Percent Auto 2.6 % (0-4); Hematocrit 32.5 % (42.0-52.0); Hemoglobin 10.6 g/dl (14.0-18.0); Imm Gran Abs Auto 0.02 X10*3/uL (0.00-0.03); Imm Gran Pct Auto 0.3 % (0.0-0.4); Lymphocytes Absolute Auto 2.3 X10*3/uL (1.2-4.9); Lymphocytes Percent Auto 32.8 % (20-40); Mean Corpuscular HGB Conc 32.6 g/dl (31.0-36.0); Mean Corpuscular Hemoglobin 30.8 pg (27.0-33.0); Mean Corpuscular Volume 94.5 fL (80.0-98.0); Mean Platelet Volume 9.5 fL (9.4-12.4); Monocytes Absolute Auto 0.6 X10*3/uL (0.1-1.2); Monocytes Percent Auto 8.8 % (2-11); Neutrophils Absolute Auto 3.9 x10*3/uL (2.0-8.3); Neutrophils Percent Auto 55.1 % (45-73); Platelet Count 198 X10*3/uL (160-400); Red Blood Count 3.44 X10*6/uL (4.60-5.80); Red Cell Distribution Width 12.8 % (11.0-16.0)
[2023-09-29 10:38] LABS: Estimated Average Glucose 192 mg/dL; Hemoglobin A1C 185.1993 umol/L; Hemoglobin A1c % 8.3 % (<6.0)
[2023-09-29 10:58] LABS: Alanine Aminotransferase 17 U/L (0-40); Albumin Level 3.9 g/dL (3.5-5.0); Alkaline Phosphatase 53 U/L (39-117); Anion Gap 11 (12-20); Aspartate Amino Transferase 18 U/L (5-37); Bilirubin Total 0.4 mg/dL (0.0-1.0); Blood Urea Nitrogen 21 mg/dL (9-16); Calcium 9.3 mg/dL (8.4-10.2); Carbon Dioxide 26 mmol/L (22-29); Chloride 105 mmol/L (96-108); Cholesterol 117 mg/dL (<200); Estimated Glomerular Filt Rate > 60; Glucose Fasting 179 mg/dL (60-99); HDL Cholesterol 50 mg/dL (>40); LDL Cholesterol Calculated 56 mg/dL (<100); Potassium 4.7 mmol/L (3.3-5.1); Sodium 137 mmol/L (135-145); Total Protein 6.5 g/dL (6.5-8.0); Triglycerides 57 mg/dL (<150)
[2023-09-29 11:15] LABS: Vitamin D 25-OH Total 48.1 ng/mL (>30)
[2023-09-29 11:28] LABS: Folate 12.5 ng/mL (> or = 4.0); Vitamin B12 587 pg/mL (200-900)
[2023-09-29 13:57] LABS: Appearance Urine Clear; Color Urine Yellow; Glucose Urine UA Negative (Negative); Leukocyte Esterase Urine Negative (Negative); Nitrite Urine Negative (Negative); Urine Blood Negative (Negative); Urine Ketones Negative (Negative); Urine Protein Negative (Neg-Trace)
[2023-09-29 13:59] LABS: Creatinine Urine 113.64 mg/dL; Microalbum/Creatinine Ratio Ur 6.1 ug/mg cr (<30)
[2023-09-30 11:28] LABS: Erythropoietin (EPO) 16.3 mIU/mL (2.6-18.5)
== END 2023-09-29 10:00 | disposition home or self-care (01) ==
LOC: HO.LAB 09:59
PROVIDERS: PCP Internal Medicine; Visit Provider Internal Medicine
DX: R30.0 Dysuria (principal); E55.9 Vitamin D deficiency, unspecified; E53.8 Deficiency of other specified B group vitamins; E11.9 Type 2 diabetes mellitus without complications; E78.00 Pure hypercholesterolemia, unspecified; D64.9 Anemia, unspecified; I10 Essential (primary) hypertension
CPT/HCPCS: 36415; 80053; 80061; 81003; 82043; 82306; 82570; 82607; 82668; 82746; 83036; 85025

== ENCOUNTER 2023-10-02 11:39 | Outpatient (AMB) | payer OTHER, SELFPAY ==
[2023-10-02 11:42] VITALS: BP 140/80; PULSE 67; O2SAT 98; BMI 24.5
--- NOTE | 2023-10-02 11:42 | A.OFFPC_ITS ---
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 Required: No Accompanied by: Self / Same As Patient Allergies aspirin [Aspirin] Adverse Reaction (Severe, Verified 10/02/23 12:13) GI BLEEDING, GI bleed Medication List - Last Reconciled 10/02/23 by Umesh Sanchez MD atorvastatin 20 mg PO DAILY blood sugar diagnostic As directed- One touch strips use daily blood-glucose meter As directed- One Touch use daily [DIABETIC SHOES As directed] glipizide TAKE 1 TABLET BY MOUTH EVERY MORNING AND 2 TABLETS EVERY EVENING; lancets As directed One Touch use daily linagliptin (Tradjenta) 5 mg PO DAILY 90 days lisinopril 10 mg PO DAILY metformin 1,000 mg PO BID multivitamin (Daily Multi-Vitamin tablet) 1 tab PO DAILY pioglitazone 45 mg PO DAILY 90 days Tobacco use date assessed: 10/02/23 Fall risk assessment: No Falls in past year Last assessed Fall Risk: 10/02/23 Dental Screening Dental Screen Date: 10/02/23 Did you have a dental visit in the last 12 months?: Yes Did you have a dental problem in the last 6 months where you did not have access to dental care?: No Was dental information given to patient?: Patient has dentist HPI DM, hyperlipidemia HPI Details Patient comes in today for his follow up visit States that he feels okay He denies any headaches or dizziness Denies any chest pains, no SOB No nausea/vomiting, no abdominal pain No change in bowel habits noted Had his follow up labs done a few days ago - to discuss his results Would like to get his flu shot today Also needs to have his Rx for diabetic shoes printed out [facility] Medical History Anemia Dupuytren's contracture of both hands Overweight (BMI 25.0-29.9) Pure hypercholesterolemia Benign essential hypertension Chronic kidney disease (CKD), stage III (moderate) Type 2 diabetes mellitus with diabetic chronic kidney disease Surgical History Hx of colonoscopy (~07/20/10) Family History Father Medical history unknown Mother Medical history unknown Social History Housing: House Alcohol intake: never Patient Tobacco Use Status: Former Tobacco user e-Cigarette/Vaping Use: Never Used Second Hand Smoke Exposure: Yes Current occupational status: retired Current occupation: retired [employer] Cognitive needs: No Hearing needs: Yes Vision needs: No Questionnaire PHQ-9 Over the last 2 weeks, how often have you been bothered by any of the following problems? 1. Little interest or pleasure in doing things: not at all 2. Feeling down, depressed, or hopeless: not at all 3. Trouble falling or staying asleep, or sleeping too much: not at all 4. Feeling tired or having little energy: not at all 5. Poor appetite or overeating: not at all 6. Feeling bad about yourself - or that you are a failure or have let yourself or your family down: not at all 7. Trouble concentrating on things, such as reading the newspaper or watching television: not at all 8. Moving or speaking so slowly that other people could have noticed. Or the opposite - being so fidgety or restless that you have been moving around a lot more than usual: not at all 9. Thoughts that you would be better off or of hurting yourself in some way: not at all Total score: 0 Depression Screening Interpretation: Negative Depression Screening Done: Yes 18254 - PHQ-9 Billing: Yes Source: Developed by Drs. Rudi Jerry, Savi Truong, Pawel Pro and colleagues, with an educational julia from [employer]. Thrive Questionnaire Date Thrive assessed: 10/02/23 I am a: Patient What is your living situation today?: I have a steady place to live Within the past 12 months, did the food you bought not last and you didn't have the money to get more?: Never true Within the past 12 months, did you worry whether your food would run out before you got money to buy more?: Never true Do you have trouble paying for medicines?: No Do you have trouble getting transportation to medical appointments?: No Do you have trouble paying your heating and electricity bill?: No Do you have trouble taking care of your child, family member or friend?: No Do you have trouble with day-to-day activities such as bathing, preparing meals, shopping, managing finances, etc.?: No Are you currently unemployed and looking for a job?: No Are you interested in more education?: No Please select the resources that you would like help with: None Currently or been in a relationship where the following occur: no concerns reported AUDIT C Alcohol Use Questionnaire (AUDIT-C) 1. How often do you have a drink containing alcohol?: Never 3. How often do you have six or more drinks on one occasion?: Never Total Score: 0 Score Reviewed/Action Taken: Yes KEATON-7 AMB Questionnaire KEATON-7 Date KEATON - 7 assessed: 10/02/23 Feeling nervous, anxious, or on edge: 0 = Not at all Not being able to stop or control worryin = Not at all Worrying too much about different things: 0 = Not at all Trouble relaxin = Not at all Being so restless that it is hard to sit still: 0 = Not at all Becoming easily annoyed or irritable: 0 = Not at all Feeling afraid as if something awful might happen: 0 = Not at all Total KEATON-7 score (0-4 normal; 5-9 mild; 10-14 moderate; 15-21 severe): 0 Source: Developed by Drs. Rudi Jerry, Savi Truong, Pawel Pro and colleagues, with an educational julia from [employer]. Review of Systems Const Denies fatigue, Denies fever(s) and Denies headache(s) ENT Denies dysphagia, Denies dizziness, Denies otalgia, Denies headache(s), Denies neck pain and Denies sore throat Card Denies chest pain, Denies palpitations and Denies dyspnea Resp Denies cough, Denies dyspnea and Denies wheezing GI Denies abdominal pain, Denies constipation, Denies dysphagia, Denies heartburn, Denies diarrhea, Denies nausea and Denies vomiting Denies dysuria, Denies nocturia and Denies urinary frequency Musc Denies back pain, Denies joint swelling and Denies neck pain Skin/Breast Denies rash Neuro Denies dizziness and Denies headache(s) Endo Denies fatigue and Denies palpitations Aller/Immun Denies wheezing Physical exam (Primary Care) Vital Signs: Last Vital Signs Pulse 67 10/02/23 11:42 BP 140/80 H 10/02/23 11:42 Pulse Ox 98 10/02/23 11:42 Oxygen Delivery Method Room Air 10/02/23 11:42 BMI result Body Mass Index 24.5 Tobacco/Smoking Status: Tobacco use Status Tobacco use date assessed 10/02/23 10/02/23 11:44 Patient Tobacco Use Status Former Tobacco user 10/02/23 11:44 e-Cigarette/Vaping Use Never Used 10/02/23 11:44 PHQ-9: PHQ-9 Score PHQ-9: Total score 0 10/02/23 12:01 Depression Screening Interpretation: Negative Thrive Assessment: Date of Thrive Assessment Date Thrive assessed 10/02/23 10/02/23 11:44 Currently or been in a relationship where the following occur: no concerns reported Const General: no acute distress and alert HENMT Ears: TM's normal bilaterally and EAC's normal Throat: Yes posterior oropharynx normal and Yes tonsils normal (no TP congestion noted) Neck Neck: Yes no lymphadenopathy and Yes supple Resp Auscultation: clear to auscultation bilaterally, no rales and no wheezes Cardio Rate: regular rate Rhythm: regular rhythm Heart sounds: no murmurs GI Palpation (GI): Soft to palpation and nontender Auscultation: normal bowel sounds Extrem General: Yes no clubbing, cyanosis or edema Office Procedures Flu Questionnaire Does the patient have a severe egg allergy?: No Does the patient have severe life threatening allergies?: No Does the patient have a fever or illness today?: No Has the patient ever had Guillain-[place] Syndrome?: No Has the patient ever had any past reaction to a flu shot?: No Immunizations flu vacc [id number] 6mos up(PF) 60 mcg(15 mcgx4)/0.5 mL IM syringe Performing Provider: Umesh Sanchez MD [place] [facility] [place] [facility] Administered by: Laron Dasilva on 10/02/23 12:02 Dose Route Admin Location Dispensed Lot Number Expiration Date 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 0.5 mL IM Left Deltoid 0.5 mL [id number] 04/11/24 [id number] [employer] VIS Given Date VIS Provided VIS Publication Date 10/02/23 Single Vaccine 21 Eligibility Eligibility Date Funding Source Not VF Eligible 10/02/23 Private Results Reviewed Results Reviewed: Laboratory Tests 09/29/23 09/29/23 10:12 10:14 WBC 7.0 Hgb 10.6 L Hct 32.5 L Plt Count 198 Sodium 137 Potassium 4.7 Creatinine 1.14 Estimated GFR > 60 Fasting Glucose 179 H Hemoglobin A1c % 8.3 H Calcium 9.3 AST 18 ALT 17 Triglycerides 57 Cholesterol 117 LDL Cholesterol, Calc 56 HDL Cholesterol 50 Vitamin B12 587 25-OH Vitamin D Total 48.1 Ur Specific [place] 1.020 Urine Protein Negative Urine Glucose (UA) Negative Urine Blood Negative Microalb/Creat Ratio 6.1 Assessment and Plan Assessment & Plan (1) Pure hypercholesterolemia: Code(s): E78.00 - Pure hypercholesterolemia, unspecified Plan: Results of his labs done a few days ago reviewed and discussed with patient Reinforced low cholesterol diet Continue Atorvastatin 20 mg QD Will recheck his labs and fasting lipids in 4 months for follow-up (2) Type 2 diabetes mellitus with diabetic chronic kidney disease: Code(s): E11.22 - Type 2 diabetes mellitus with diabetic chronic kidney disease Qualifiers: Diabetes mellitus group home insulin use: without assistant terminal manager use Chronic kidney disease stage: stage 3 (moderate) Chronic kidney disease stage 3 subtype: stage 3a (GFR 45-59) Qualified Code(s): E11.21 - Type 2 diabetes mellitus with diabetic nephropathy; N18.31 - Chronic kidney disease, stage 3a Plan: HgbA1c is at 8.3% on his labs done a few days ago (was at 8.2% a few months ago) - goal is <7.0% Reinforced diabetic diet Continue Pioglitazone 45 mg QD, Metformin 1000 mg BID, Glipizide 5 mg 1 tablet in AM and 2 tablets in PM and Tradjenta 5 mg QD Was Trulicity 1.5 mg SQ once a week but states that he can no longer afford the $86/month co-pay that his insurance is requiring him to cover Could also not afford Januvia, which he was also on in the past (3) Chronic kidney disease (CKD), stage III (moderate): Code(s): N18.30 - Chronic kidney disease, stage 3 unspecified Qualifiers: Chronic kidney disease stage 3 subtype: stage 3a (GFR 45-59) Qualified Code(s): N18.31 - Chronic kidney disease, stage 3a Plan: His renal function still appears stable and he seems to be actually in the normal range now on his recent labs Have emphasized to patient again that the goal is to preserve his renal function for as long as possible and the best way to do this is with tight control of his diabetes and hypertension He is reminded again of our previous discussions that if his renal function continues to decline, we may need to take him off his Metformin (if creatinine > 1.5) Will continue to monitor GFR and renal function closely (4) Benign essential hypertension: Code(s): I10 - Essential (primary) hypertension Plan: Reinforced low sodium diet - goal is systolic BP of at least 130 to 140 mm or less in light of his CKD Continue Lisinopril 10 mg QD (5) Anemia: Code(s): D64.9 - Anemia, unspecified Qualifiers: Anemia type: unspecified type Qualified Code(s): D64.9 - Anemia, unspecified Plan: Mild, stable - is most likely due to CKD / anemia of chronic disease Will continue to monitor his CBC regularly (6) Dupuytren's contracture of both hands: Code(s): 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 Panel Fast 4 Months E78.00 - Pure hypercholesterolemia, unspecified Microalbumin, Random (w Creat) 4 Months E11.9 - Type 2 diabetes mellitus without complications Influenza [id number] Immunization Today Z23 - Encounter for immunization Complete Blood Count Auto Diff 4 Months I10 - Essential (primary) hypertension Lipid Panel 4 Months E78.00 - Pure hypercholesterolemia, unspecified UA CC w/rflx Micro + Cult 4 Months R30.0 - Dysuria Vitamin D 25-OH Total 4 Months E55.9 - Vitamin D deficiency, unspecified TSH reflex Free T4 4 Months E78.00 - Pure hypercholesterolemia, unspecified Medications: New [DIABETIC SHOES (1 pair)] As directed 2 ea 0RF E11.22 - Type 2 diabetes mellitus with diabetic chronic kidney disease [DIABETIC SHOES (1 pair)] As directed 2 ea 0RF E11.22 - Type 2 diabetes mellitus with diabetic chronic kidney disease Coding Level of Care Code Est Pt Level 4 (58880) Diagnoses Pure hypercholesterolemia E78.00 Type 2 diabetes mellitus with stage 3a chronic kidney disease, without long-term current use of insulin E11.21; N18.31 Diabetes mellitus assistant terminal manager insulin use: without assistant terminal manager use Chronic kidney disease stage: stage 3 (moderate) Chronic kidney disease stage 3 subtype: stage 3a (GFR 45-59) Stage 3a chronic kidney disease N18.31 Chronic kidney disease stage 3 subtype: stage 3a (GFR 45-59) Benign essential hypertension I10 Anemia, unspecified type D64.9 Anemia type: unspecified type Dupuytren's contracture of both hands M72.0
== END 2023-10-02 12:35 | disposition home or self-care (01) ==
PROVIDERS: PCP Internal Medicine; Visit Provider Internal Medicine
DX: Z23 Encounter for immunization (principal); E78.00 Pure hypercholesterolemia, unspecified; E11.21 Type 2 diabetes mellitus with diabetic nephropathy; I12.9 Hypertensive chronic kidney disease with stage 1 through stage 4 chronic kidney disease, or unspecified chronic kidney disease; N18.31 Chronic kidney disease, stage 3a; D64.9 Anemia, unspecified; M72.0 Palmar fascial fibromatosis [Dupuytren]
CPT/HCPCS: 90471; 90686; 99214

== ENCOUNTER 2024-02-05 10:43 | Outpatient (REF) | payer OTHER, SELFPAY ==
[2024-02-05 11:03] LABS: MANUAL DIFF FLAG NO
[2024-02-05 11:34] LABS: Basophils Percent Auto 0.4 % (0-2); Eosinophils Absolute Auto 0.2 X10*3/uL (0.0-0.4); Eosinophils Percent Auto 2.6 % (0-4); Hematocrit 32.4 % (42.0-52.0); Hemoglobin 10.8 g/dl (14.0-18.0); Imm Gran Abs Auto 0.02 X10*3/uL (0.00-0.03); Imm Gran Pct Auto 0.3 % (0.0-0.4); Mean Corpuscular HGB Conc 33.3 g/dl (31.0-36.0); Mean Corpuscular Hemoglobin 30.7 pg (27.0-33.0); Monocytes Absolute Auto 0.6 X10*3/uL (0.1-1.2); Monocytes Percent Auto 9.1 % (2-11); Neutrophils Absolute Auto 3.9 x10*3/uL (2.0-8.3); Neutrophils Percent Auto 57.6 % (45-73); Platelet Count 321 X10*3/uL (160-400); Red Blood Count 3.52 X10*6/uL (4.60-5.80); Red Cell Distribution Width 13.7 % (11.0-16.0); White Blood Count 6.8 X10*3/uL (4.8-10.8)
[2024-02-05 11:46] LABS: Estimated Average Glucose 235 mg/dL; Hemoglobin A1c % 9.8 % (<6.0)
[2024-02-05 11:56] LABS: Appearance Urine Clear; Color Urine Yellow; Glucose Urine UA Negative (Negative); Leukocyte Esterase Urine Negative (Negative); Nitrite Urine Negative (Negative); PH 5.5 (5.0-9.0); Urine Blood Negative (Negative); Urine Ketones Trace mg/dL (Negative); Urine Protein Negative (Neg-Trace)
[2024-02-05 12:28] LABS: Alanine Aminotransferase 26 U/L (0-40); Alkaline Phosphatase 62 U/L (39-117); Anion Gap 9 (12-20); Aspartate Amino Transferase 25 U/L (5-37); Bilirubin Total 0.6 mg/dL (0.0-1.0); Blood Urea Nitrogen 24 mg/dL (9-16); Calcium 9.5 mg/dL (8.4-10.2); Carbon Dioxide 26 mmol/L (22-29); Chloride 105 mmol/L (96-108); Cholesterol 99 mg/dL (<200); Estimated Glomerular Filt Rate 52; Glucose Fasting 223 mg/dL (60-99); HDL Cholesterol 42 mg/dL (>40); LDL Cholesterol Calculated 48 mg/dL (<100); Potassium 4.8 mmol/L (3.3-5.1); Sodium 135 mmol/L (135-145); Total Protein 6.7 g/dL (6.5-8.0); Triglycerides 49 mg/dL (<150)
[2024-02-05 12:29] LABS: TSH reflex Free T4 3.17 uIU/mL (0.32-4.0); Vitamin D 25-OH Total 44.3 ng/mL (>30)
[2024-02-05 12:46] LABS: Creatinine Urine 198.55 mg/dL
== END 2024-02-05 10:44 | disposition home or self-care (01) ==
LOC: HO.LAB 10:43
PROVIDERS: PCP Internal Medicine; Visit Provider Internal Medicine
DX: E55.9 Vitamin D deficiency, unspecified (principal); E78.00 Pure hypercholesterolemia, unspecified; E11.9 Type 2 diabetes mellitus without complications; I10 Essential (primary) hypertension; R30.0 Dysuria
CPT/HCPCS: 36415; 80053; 80061; 81003; 82043; 82306; 82570; 83036; 84443; 85025

== ENCOUNTER 2024-02-06 15:50 | Outpatient (AMB) | payer OTHER, SELFPAY ==
[2024-02-06 15:58] VITALS: BP 118/56; PULSE 66; O2SAT 98; BMI 24.9
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
== END 2024-02-06 17:02 | disposition home or self-care (01) ==
PROVIDERS: PCP Internal Medicine; Visit Provider Internal Medicine
DX: E11.22 Type 2 diabetes mellitus with diabetic chronic kidney disease (principal); I12.9 Hypertensive chronic kidney disease with stage 1 through stage 4 chronic kidney disease, or unspecified chronic kidney disease; N18.31 Chronic kidney disease, stage 3a; E78.00 Pure hypercholesterolemia, unspecified; D64.9 Anemia, unspecified; M72.0 Palmar fascial fibromatosis [Dupuytren]
CPT/HCPCS: 99214

== ENCOUNTER 2024-05-17 18:43 | Emergency (ER) | payer OTHER, SELFPAY ==
--- NOTE | 2024-05-17 | ECG_ITS ---
Test Reason : CP Blood Pressure : / mmHG Vent. Rate : 067 BPM Atrial Rate : 067 BPM P-R Int : 132 ms QRS Dur : 130 ms QT Int : 394 ms P-R-T Axes : 069 -21 051 degrees QTc Int : 416 ms Normal sinus rhythm Right bundle branch block Abnormal ECG When compared with ECG of 30-MAR-2010 15:25, Right bundle branch block has replaced Incomplete right bundle branch block Nonspecific T wave abnormality no longer evident in Inferior leads Referred By: Generic ED Physician Electronically Signed By:BRUCE ZENDEJAS MD
--- NOTE | ~2024-05-17 | CT_ITS ---
EXAMINATION: CT CHEST, ABDOMEN AND PELVIS WITH CONTRAST CLINICAL INFORMATION: Injury. Pain. COMPARISON: None available. TECHNIQUE: Multidetector volumetric CT imaging of the chest, abdomen and pelvis was obtained after the administration of 85 mL of Omnipaque 350 intravenous contrast without immediate adverse reactions. Axial MIP volume rendering provided. Sagittal and coronal reformatted images were obtained. This CT examination was performed using dose optimization techniques as appropriate, variously including the following: *Automated exposure control *Adjustment of mA and/or kV according to patient size (this includes techniques or standardized protocols for targeted exams where dose is matched to indication/reason for exam; i.e. extremities or head) *Use of iterative reconstruction technique DLP: 1205 mGy-cm FINDINGS: TRACTOR ENGINE MECHANIC: Unremarkable. LUNGS: The lungs are clear with no evidence of inflammation or nodules. MEDIASTINUM: The mediastinum is normal. PLEURA: There is no pleural effusion. No pleural mass or thickening. AXILLA: No lymphadenopathy. LIVER, GALLBLADDER, AND BILIARY TREE: The liver is normal in size, shape, and attenuation. No focal hepatic lesion or biliary ductal dilatation is present. The gallbladder is normal in appearance. PANCREAS: Unremarkable SPLEEN: Unremarkable ADRENAL GLANDS: There is left adrenal gland thickening. KIDNEYS AND URETERS: The kidneys are normal in size, shape, and attenuation. No hydronephrosis, hydroureter, or calculi seen. No perinephric stranding. There are subcentimeter hypodensities upper pole right kidney likely small cysts. BLADDER: Unremarkable GASTROINTESTINAL TRACT: The small and large bowel are unremarkable. The appendix is not identified as a separate structure. ABDOMINAL WALL: Umbilical region hernia repair mesh is noted. LYMPH NODES: Normal VASCULAR: There is mild atherosclerotic plaque of the abdominal aorta. PELVIC VISCERA: Unremarkable OSSEOUS STRUCTURES: There is a comminuted displaced posterior right 10th rib fracture and an undisplaced lateral right 9th rib fracture. CT/CT chest w IV con IMPRESSION: Comminuted displaced posterior right 10th rib fracture and undisplaced lateral right 9th rib fracture. No active cardiopulmonary disease. No acute intra-abdominal process. Fleischner guidelines were followed.
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
[2024-05-17 19:19] VITALS: BP 144/62; PULSE 74; O2SAT 98
[2024-05-17 19:26] VITALS: BP 152/68; PULSE 70; RESP 16; TEMP 36.8; O2SAT 97; BMI 23.5
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
[2024-05-17 21:36] LABS: MANUAL DIFF FLAG NO
[2024-05-17 21:41] LABS: Basophils Percent Auto 0.3 % (0-2); Eosinophils Absolute Auto 0.1 X10*3/uL (0.0-0.4); Eosinophils Percent Auto 1.4 % (0-4); Hematocrit 32.3 % (42.0-52.0); Hemoglobin 11.2 g/dl (14.0-18.0); Imm Gran Abs Auto 0.04 X10*3/uL (0.00-0.03); Imm Gran Pct Auto 0.4 % (0.0-0.4); Lymphocytes Absolute Auto 1.6 X10*3/uL (1.2-4.9); Mean Corpuscular HGB Conc 34.7 g/dl (31.0-36.0); Mean Corpuscular Hemoglobin 31.8 pg (27.0-33.0); Mean Corpuscular Volume 91.8 fL (80.0-98.0); Mean Platelet Volume 9.6 fL (9.4-12.4); Monocytes Absolute Auto 0.9 X10*3/uL (0.1-1.2); Monocytes Percent Auto 9.2 % (2-11); Neutrophils Absolute Auto 6.7 x10*3/uL (2.0-8.3); Neutrophils Percent Auto 71.7 % (45-73); Platelet Count 206 X10*3/uL (160-400); Red Blood Count 3.52 X10*6/uL (4.60-5.80); White Blood Count 9.4 X10*3/uL (4.8-10.8)
[2024-05-17 21:53] LABS: Alanine Aminotransferase 22 U/L (0-40); Alkaline Phosphatase 65 U/L (39-117); Anion Gap 10 (12-20); Aspartate Amino Transferase 22 U/L (5-37); Bilirubin Direct 0.1 mg/dL (0.0-0.5); Bilirubin Total 0.4 mg/dL (0.0-1.0); Blood Urea Nitrogen 28 mg/dL (9-16); Calcium 9.5 mg/dL (8.4-10.2); Carbon Dioxide 25 mmol/L (22-29); Chloride 106 mmol/L (96-108); Creatinine Clr Calc Pharmacy 40.5; Estimated Glomerular Filt Rate 46; Glucose Random 322 mg/dL (60-115); Lipase 27 U/L (8-78); Potassium 4.9 mmol/L (3.3-5.1); Sodium 136 mmol/L (135-145); Total Protein 6.5 g/dL (6.5-8.0)
[2024-05-17] MEDS: iohexoL 350 MG/ML 100 ML INFUS..BTL IV (22:35)
[2024-05-17] MEDS: 0.9 % Sodium Chloride 500 ML 999 ML IV (22:47)
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
[2024-05-18] VITALS: BP 145/61; PULSE 54; RESP 12; TEMP 36.8; O2SAT 98
[2024-05-18 02:00] VITALS: BP 157/46; PULSE 64; RESP 14; TEMP 36.4; O2SAT 99
[2024-05-18 02:52] VITALS: BP 157/46; PULSE 64; RESP 14; TEMP 36.4; O2SAT 99
== END 2024-05-18 02:50 | disposition home or self-care (01) ==
PROVIDERS: Emergency Provider Emergency Medicine Emergency Medical Services; PCP Internal Medicine
DX: S22.41XA Multiple fractures of ribs, right side, initial encounter for closed fracture (principal); R07.89 Other chest pain; R11.0 Nausea; I45.10 Unspecified right bundle-branch block; R51.9 Headache, unspecified; M54.2 Cervicalgia; M25.522 Pain in left elbow; V43.52XA Car driver injured in collision with other type car in traffic accident, initial encounter; Y93.9 Activity, unspecified; Y92.410 Unspecified street and highway as the place of occurrence of the external cause; Y99.8 Other external cause status; Z79.899 Other long term (current) drug therapy
CPT/HCPCS: 36415; 70450; 71260; 72125; 73070; 74177; 80048; 80076; 83690; 85025; 93005; 96361; 96365; 99285; J0690; Q9967

== ENCOUNTER → 2024-05-17 19:34 | Outpatient (BNV) | payer OTHER, SELFPAY | PROVIDERS: Emergency Provider Emergency Medicine Emergency Medical Services; PCP Internal Medicine; Visit Provider Internal Medicine Cardiovascular Disease | DX: R94.31 Abnormal electrocardiogram [ECG] [EKG] (principal) | CPT/HCPCS: 93010 ==

== ENCOUNTER 2024-05-20 11:31 | Outpatient (AMB) | payer OTHER, SELFPAY ==
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
[2024-05-20 11:33] VITALS: BP 160/72; PULSE 56; O2SAT 98; BMI 23.0
== END 2024-05-20 12:58 | disposition home or self-care (01) ==
PROVIDERS: PCP Internal Medicine; Visit Provider Internal Medicine
DX: S22.41XS Multiple fractures of ribs, right side, sequela (principal); V89.2XXS Person injured in unspecified motor-vehicle accident, traffic, sequela; S50.8 Other superficial injuries of forearm
CPT/HCPCS: 99213

== ENCOUNTER 2024-06-12 09:39 | Outpatient (REF) | payer OTHER, SELFPAY ==
[2024-06-12 10:40] LABS: MANUAL DIFF FLAG NO
[2024-06-12 11:34] LABS: Basophils Percent Auto 0.4 % (0-2); Eosinophils Absolute Auto 0.2 X10*3/uL (0.0-0.4); Eosinophils Percent Auto 2.8 % (0-4); Hematocrit 35.6 % (42.0-52.0); Imm Gran Abs Auto 0.03 X10*3/uL (0.00-0.03); Imm Gran Pct Auto 0.4 % (0.0-0.4); Lymphocytes Absolute Auto 2.6 X10*3/uL (1.2-4.9); Lymphocytes Percent Auto 38.9 % (20-40); Mean Corpuscular HGB Conc 33.7 g/dl (31.0-36.0); Mean Corpuscular Hemoglobin 31.4 pg (27.0-33.0); Mean Corpuscular Volume 93.2 fL (80.0-98.0); Mean Platelet Volume 9.8 fL (9.4-12.4); Monocytes Absolute Auto 0.7 X10*3/uL (0.1-1.2); Monocytes Percent Auto 10.5 % (2-11); Neutrophils Absolute Auto 3.2 x10*3/uL (2.0-8.3); Platelet Count 237 X10*3/uL (160-400); Red Blood Count 3.82 X10*6/uL (4.60-5.80); Red Cell Distribution Width 13.1 % (11.0-16.0); White Blood Count 6.8 X10*3/uL (4.8-10.8)
[2024-06-12 11:45] LABS: Estimated Average Glucose 229 mg/dL; Hemoglobin A1c % 9.6 % (<6.0)
[2024-06-12 11:56] LABS: Microalbum/Creatinine Ratio Ur 5.2 ug/mg cr (<30)
[2024-06-12 12:59] LABS: Appearance Urine Clear; Color Urine Yellow; Glucose Urine UA Negative (Negative); Leukocyte Esterase Urine Negative (Negative); Nitrite Urine Negative (Negative); Urine Blood Negative (Negative); Urine Ketones Trace mg/dL (Negative); Urine Protein Negative (Neg-Trace)
[2024-06-12 13:16] LABS: Alanine Aminotransferase 21 U/L (0-40); Albumin Level 4.6 g/dL (3.5-5.0); Alkaline Phosphatase 73 U/L (39-117); Anion Gap 15 (12-20); Aspartate Amino Transferase 26 U/L (5-37); Bilirubin Total 0.6 mg/dL (0.0-1.0); Blood Urea Nitrogen 35 mg/dL (9-16); Calcium 10.1 mg/dL (8.4-10.2); Carbon Dioxide 24 mmol/L (22-29); Chloride 101 mmol/L (96-108); Cholesterol 109 mg/dL (<200); Estimated Glomerular Filt Rate 36; Glucose Fasting 168 mg/dL (60-99); HDL Cholesterol 49 mg/dL (>40); LDL Cholesterol Calculated 48 mg/dL (<100); Potassium 4.4 mmol/L (3.3-5.1); Sodium 136 mmol/L (135-145); Total Protein 7.4 g/dL (6.5-8.0); Triglycerides 60 mg/dL (<150)
[2024-06-12 13:30] LABS: TSH reflex Free T4 3.77 uIU/mL (0.32-4.0); Vitamin D 25-OH Total 62.3 ng/mL (>30)
== END 2024-06-12 09:40 | disposition home or self-care (01) ==
LOC: HO.LAB 09:39
PROVIDERS: PCP Internal Medicine; Visit Provider Internal Medicine
DX: R30.0 Dysuria (principal); E11.9 Type 2 diabetes mellitus without complications; D64.9 Anemia, unspecified; E78.00 Pure hypercholesterolemia, unspecified; E55.9 Vitamin D deficiency, unspecified
CPT/HCPCS: 36415; 80053; 80061; 81003; 82043; 82306; 82570; 83036; 84443; 85025

== ENCOUNTER 2024-06-16 16:24 | Outpatient (AMB) | payer OTHER, SELFPAY ==
[2024-06-16 16:27] VITALS: BP 128/84; PULSE 59; O2SAT 98; BMI 22.8
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
== END 2024-06-16 17:19 | disposition home or self-care (01) ==
PROVIDERS: PCP Internal Medicine; Visit Provider Internal Medicine
DX: I12.9 Hypertensive chronic kidney disease with stage 1 through stage 4 chronic kidney disease, or unspecified chronic kidney disease (principal); E11.21 Type 2 diabetes mellitus with diabetic nephropathy; N18.31 Chronic kidney disease, stage 3a; E78.00 Pure hypercholesterolemia, unspecified; D64.9 Anemia, unspecified; M72.0 Palmar fascial fibromatosis [Dupuytren]
CPT/HCPCS: 99214; G2211

== ENCOUNTER 2024-06-21 17:31 | Outpatient (AMB) | payer OTHER, SELFPAY ==
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
[2024-06-21 17:59] VITALS: BP 132/70; BMI 22.6
== END 2024-06-21 18:19 | disposition home or self-care (01) ==
PROVIDERS: PCP Internal Medicine; Visit Provider Internal Medicine
DX: M54.50 Low back pain, unspecified (principal); V89.2XXD Person injured in unspecified motor-vehicle accident, traffic, subsequent encounter; Z04.3 Encounter for examination and observation following other accident; S50.812D Abrasion of left forearm, subsequent encounter
CPT/HCPCS: 99213

== ENCOUNTER 2024-07-20 15:06 | Outpatient (AMB) | payer OTHER, SELFPAY ==
[2024-07-20 15:12] VITALS: BP 122/80; PULSE 63; O2SAT 99; BMI 23.0
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
== END 2024-07-20 16:09 | disposition home or self-care (01) ==
PROVIDERS: PCP Internal Medicine; Visit Provider Internal Medicine
DX: M54.50 Low back pain, unspecified (principal); V89.2XXD Person injured in unspecified motor-vehicle accident, traffic, subsequent encounter; S22.41XD Multiple fractures of ribs, right side, subsequent encounter for fracture with routine healing; Z04.3 Encounter for examination and observation following other accident; S50.812D Abrasion of left forearm, subsequent encounter

== ENCOUNTER → 2024-07-20 15:06 | Outpatient (BNVA) | payer OTHER, SELFPAY | PROVIDERS: PCP Internal Medicine; Visit Provider Internal Medicine ==

== ENCOUNTER 2024-08-27 14:07 | Outpatient (RCR) | payer OTHER, SELFPAY ==
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
== END 2024-08-31 13:41 | disposition home or self-care (01) ==
LOC: HO.PT 14:07
PROVIDERS: PCP Internal Medicine; Visit Provider Internal Medicine
DX: M54.50 Low back pain, unspecified (principal); V89.2XXS Person injured in unspecified motor-vehicle accident, traffic, sequela
CPT/HCPCS: 97110; 97162

== ENCOUNTER 2024-09-29 14:48 | Outpatient (REF) | payer OTHER, SELFPAY ==
--- NOTE | ~2024-09-29 | XR_ITS ---
EXAMINATION: XR FOREARM LEFT CLINICAL INFORMATION: Disorder of bone, unspecified M89.9. Patient states soft lesion just distal to elbow on posterior aspect. COMPARISON: XR Left elbow 05/17/2024 TECHNIQUE: AP and lateral views of the left forearm were obtained. FINDINGS: There is a 5 mm subcutaneous foreign body at the posterior medial aspect of the proximal ulna which was present on the previous study.. No acute fracture or malalignment. No elbow joint effusion. Dorsal soft tissue swelling at the wrist. XR/XR forearm LT 2V IMPRESSION: No acute osseous abnormality. Probable dorsal soft tissue swelling at the wrist. Redemonstration of a 5 mm subcutaneous foreign body at the posterior medial aspect of the proximal ulna. Electronically signed by: Leandro Mendoza MD 10/04/2024 12:51 PM CHANTAL MATIAS
== END 2024-09-29 14:49 | disposition home or self-care (01) ==
LOC: HO.XRAY 14:48
PROVIDERS: PCP Internal Medicine; Visit Provider Internal Medicine
DX: M54.50 Low back pain, unspecified (principal); S22.41XD Multiple fractures of ribs, right side, subsequent encounter for fracture with routine healing; S50.812D Abrasion of left forearm, subsequent encounter; V89.2XXD Person injured in unspecified motor-vehicle accident, traffic, subsequent encounter; H91.90 Unspecified hearing loss, unspecified ear; M89.9 Disorder of bone, unspecified
CPT/HCPCS: 73090; 96127

== ENCOUNTER 2024-09-29 14:48 | Outpatient (AMB) | payer OTHER, SELFPAY ==
[2024-09-29 14:58] VITALS: BP 136/74; PULSE 69; O2SAT 98; BMI 24.8
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
== END 2024-09-29 16:14 | disposition home or self-care (01) ==
PROVIDERS: PCP Internal Medicine; Visit Provider Internal Medicine
DX: M54.50 Low back pain, unspecified (principal); S50.8 Other superficial injuries of forearm; S22.41XS Multiple fractures of ribs, right side, sequela; Z04.3 Encounter for examination and observation following other accident; V89.2XXS Person injured in unspecified motor-vehicle accident, traffic, sequela

== ENCOUNTER 2024-11-02 17:00 | Outpatient (AMB) | payer MEDICARE, SELFPAY ==
[2024-11-02 17:03] VITALS: BP 138/82; PULSE 60; O2SAT 98; BMI 23.9
--- NOTE | 2024-11-02 17:03 | A.OFFPC_ITS ---
Vital Signs 11/02/24 17:03 Height 5 ft 8 in Weight 157 lb 6 oz BMI 23.9 BP 138/82 Blood Pressure Location Lt brachial Position Sitting Pulse 60 Pulse Source Pulse Oximeter Pulse Oximetry (%) 98 Oxygen Delivery Method Room Air Intake Visit Reasons: 4 month f/u Superintendent Meter Tests Required: No Accompanied by: Self / Same As Patient Allergies aspirin [Aspirin] Adverse Reaction (Severe, Verified 11/02/24 17:20) GI BLEEDING, GI bleed Medication List - Last Reconciled 11/02/24 by Umesh Sanchez MD alogliptin 25 mg PO QAM 90 days atorvastatin 20 mg PO DAILY blood sugar diagnostic As directed- One touch strips use daily blood-glucose meter As directed- One Touch use daily dapagliflozin propanediol (Farxiga) 10 mg PO QAM 30 days [DIABETIC SHOES As directed] [DIABETIC SHOES (1 pair) As directed] glipizide TAKE 1 TABLET BY MOUTH EVERY MORNING AND 2 TABLETS EVERY EVENING; lancets As directed One Touch use daily lisinopril 10 mg PO DAILY metformin 1,000 mg PO BID multivitamin (Daily Multi-Vitamin tablet) 1 tab PO DAILY pioglitazone 45 mg PO DAILY 90 days prasterone (dhea) (DHEA) 50 mg PO DAILY 90 days Tobacco use date assessed: 11/02/24 Fall risk assessment: No Falls in past year Last assessed Fall Risk: 11/02/24 Dental Screening Dental Screen Date: 11/02/24 Did you have a dental visit in the last 12 months?: Yes Did you have a dental problem in the last 6 months where you did not have access to dental care?: No Was dental information given to patient?: Patient has dentist HPI 4 month f/u HPI0 Details Patient comes in today for his follow up visit States that he feels okay He denies any headaches or dizziness Denies any chest pains, no SOB No nausea/vomiting, no abdominal pain No change in bowel habits noted Needs his Atorvastatin Rx refilled He had his follow up labs done a few days ago - to discuss his results Would also like to know how his left elbow/forearm x-rays came out as he still feels a nodular lesion inside his left elbow/forearm area and feels like it is moving around [facility] Medical History Anemia Dupuytren's contracture of both hands Overweight (BMI 25.0-29.9) Pure hypercholesterolemia Benign essential hypertension Chronic kidney disease (CKD), stage III (moderate) Type 2 diabetes mellitus with diabetic chronic kidney disease Surgical History Hx of colonoscopy (~07/20/10) Family History Father Medical history unknown Mother Medical history unknown Social History Housing: House Alcohol intake: never Patient Tobacco Use Status: Former Tobacco user Tobacco use type: Cigarette e-Cigarette/Vaping Use: Never Used Second Hand Smoke Exposure: Yes service: No Current occupational status: retired Current occupation: retired [employer] Cognitive needs: No Hearing needs: Yes Vision needs: No Questionnaire PHQ-9 Over the last 2 weeks, how often have you been bothered by any of the following problems? 1. Little interest or pleasure in doing things: not at all 2. Feeling down, depressed, or hopeless: not at all 3. Trouble falling or staying asleep, or sleeping too much: not at all 4. Feeling tired or having little energy: not at all 5. Poor appetite or overeating: not at all 6. Feeling bad about yourself - or that you are a failure or have let yourself or your family down: not at all 7. Trouble concentrating on things, such as reading the newspaper or watching t elevision: not at all 8. Moving or speaking so slowly that other people could have noticed. Or the opposite - being so fidgety or restless that you have been moving around a lot more than usual: not at all 9. Thoughts that you would be better off or of hurting yourself in some way: not at all Total score: 0 Depression Screening Interpretation: Negative Depression Screening Done: Yes 47276 - PHQ-9 Billing: Yes Source: Developed by Drs. Rudi Jerry, Savi Truong, Pawel Pro and colleagues, with an educational julia from [employer]. Thrive Questionnaire Date Thrive assessed: 11/02/24 I am a: Patient What is your living situation today?: I have a steady place to live Within the past 12 months, did the food you bought not last and you didn't have the money to get more?: Never true Within the past 12 months, did you worry whether your food would run out before you got money to buy more?: Never true Do you have trouble paying for medicines?: No Do you have trouble getting transportation to medical appointments?: No Do you have trouble paying your heating and electricity bill?: No Do you have trouble taking care of your child, family member or friend?: No Do you have trouble with day-to-day activities such as bathing, preparing meals, shopping, managing finances, etc.?: No Are you currently unemployed and looking for a job?: No Are you interested in more education?: No Please select the resources that you would like help with: None Currently or been in a relationship where the following occur: No concerns reported THRIVE Score: 0 AUDIT C Alcohol Use Questionnaire (AUDIT-C) 1. How often do you have a drink containing alcohol?: Monthly or less 2. How many drinks containing alcohol do you have on a typical day when you are drinking?: 1 or 2 3. How often do you have six or more drinks on one occasion?: Never Total Score: 1 Score Reviewed/Action Taken: Yes KEATON-7 AMB Questionnaire KEATON-7 Date KEATON - 7 assessed: 11/02/24 Feeling nervous, anxious, or on edge: 0 = Not at all Not being able to stop or control worryin = Not at all Worrying too much about different things: 0 = Not at all Trouble relaxin = Not at all Being so restless that it is hard to sit still: 0 = Not at all Becoming easily annoyed or irritable: 0 = Not at all Feeling afraid as if something awful might happen: 0 = Not at all Total KEATON-7 score (0-4 normal; 5-9 mild; 10-14 moderate; 15-21 severe): 0 Source: Developed by Drs. Rudi Jerry, Savi Truong, Pawel Pro and colleagues, with an educational julia from [employer]. Review of Systems Const Denies chills, Denies fatigue, Denies fever(s) and Denies headache(s) ENT Denies dysphagia, Denies dizziness, Denies otalgia, Denies headache(s), Reports hearing loss, Denies neck pain, Denies odynophagia and Denies sore throat Card Denies chest pain, Denies irregular heart rhythm, Denies palpitations and Denies dyspnea Resp Denies chest congestion, Denies cough and Denies dyspnea GI Denies abdominal pain, Denies constipation, Denies dysphagia, Denies heartburn, Denies diarrhea, Denies nausea, Denies odynophagia and Denies vomiting Denies dysuria, Denies nocturia and Denies urinary frequency Musc Reports back pain (over the lower back, only when he bends over - mild), Denies arthralgias and Denies neck pain Skin/Breast Denies rash Neuro Denies dizziness and Denies headache(s) Endo Denies fatigue and Denies palpitations Physical exam (Primary Care) Vital Signs: Last Vital Signs Pulse 60 11/02/24 17:03 BP 138/82 11/02/24 17:03 Pulse Ox 98 11/02/24 17:03 Oxygen Delivery Method Room Air 11/02/24 17:03 BMI result Body Mass Index 23.9 Tobacco/Smoking Status: Tobacco use Status Tobacco use date assessed 11/02/24 11/02/24 17:08 Patient Tobacco Use Status Former Tobacco user 11/02/24 17:08 Tobacco use type Cigarette 11/02/24 17:08 e-Cigarette/Vaping Use Never Used 11/02/24 17:08 PHQ-9: PHQ-9 Score PHQ-9: Total score 0 11/02/24 17:30 Depression Screening Interpretation: Negative Thrive Assessment: Date of Thrive Assessment Date Thrive assessed 11/02/24 11/02/24 17:08 Currently or been in a relationship where the following occur: No concerns reported Const General: no acute distress and alert HENMT Ears: TM's normal bilaterally and EAC's normal Throat: Yes posterior oropharynx normal and Yes tonsils normal Neck Neck: Yes supple and No lymphadenopathy Thyroid: Thyroid normal Resp Auscultation: clear to auscultation bilaterally, no rales and no wheezes Cardio Rate: regular rate Rhythm: regular rhythm Heart sounds: no murmurs GI Palpation (GI): Soft to palpation and nontender Auscultation: normal bowel sounds General: Yes no CVA tenderness Back/Spine/Pelvis Back: no CVA tenderness Cervical Spine: No Cervical spine tenderness Thoracic/Lumbar Spine: lumbar spinal tenderness (mild) Skin Other: (+) small soft, nodular lesion on the extensor aspect of the left forearm just distal to the elbow Rashes: no rashes Extrem General: Yes no clubbing, cyanosis or edema Results Reviewed Results Reviewed: Laboratory Tests 10/29/24 10/29/24 12:09 12:10 WBC 6.5 Hgb 11.7 L Hct 34.9 L Plt Count 202 Sodium 136 Potassium 4.8 Creatinine 1.28 Estimated GFR 55 Fasting Glucose 199 H Hemoglobin A1c % 9.3 H Calcium 9.1 D AST 22 ALT 20 Triglycerides 61 Cholesterol 118 LDL Cholesterol, Calc 53 HDL Cholesterol 53 25-OH Vitamin D Total 48.2 TSH 4.31 H Free T4 0.98 Ur Specific [place] 1.020 Urine Protein Negative Urine Glucose (UA) Negative Urine Blood Trace H Urine Nitrite Negative Ur Leukocyte Esterase Negative Microalb/Creat Ratio 28.0 Coding Level of Care Code Est Pt Level 4 (57745) Complex EM visit Add On G2211 Diagnoses Pure hypercholesterolemia E78.00 Type 2 diabetes mellitus with stage 3a chronic kidney disease, without long-term current use of insulin E11.21; N18.31 Diabetes mellitus care home insulin use: without terminal block assembler use Chronic kidney disease stage: stage 3 (moderate) Chronic kidney disease stage 3 subtype: stage 3a (GFR 45-59) Stage 3a chronic kidney disease N18.31 Chronic kidney disease stage 3 subtype: stage 3a (GFR 45-59) Benign essential hypertension I10 Anemia, unspecified type D64.9 Anemia type: unspecified type Dupuytren's contracture of both hands M72.0 Hearing loss, unspecified hearing loss type, unspecified laterality H91.90 Hearing loss type: unspecified Laterality: unspecified laterality Foreign body of elbow, left, sequela S50.352S Encounter type: sequela Laterality: left Additional Codes PHQ-9 - 61091 - PHQ-9 Billing: Yes ([id number]) Assessment & Plan Assessment & Plan (1) Pure hypercholesterolemia: Code(s): E78.00 - Pure hypercholesterolemia, unspecified Category: Medical Plan: Results of his labs done a few days ago reviewed and discussed with patient Reinforced low cholesterol diet Continue Atorvastatin 20 mg QD - Rx refilled Will recheck his labs and fasting lipids in 4 months for follow-up (2) Type 2 diabetes mellitus with diabetic chronic kidney disease: Code(s): E11.22 - Type 2 diabetes mellitus with diabetic chronic kidney disease Category: Medical Qualifiers: Diabetes mellitus terminal block assembler insulin use: without terminal block assembler use Chronic kidney disease stage: stage 3 (moderate) Chronic kidney disease stage 3 subtype: stage 3a (GFR 45-59) Qualified Code(s): E11.21 - Type 2 diabetes mellitus with diabetic nephropathy; N18.31 - Chronic kidney disease, stage 3a Plan: His HgbA1c is still up at 9.3% on his labs done a few days ago (was previously at 9.6% a few months ago) - goal is <7.0% Reinforced diabetic diet - patient admits to poor compliance with his diet; his states that he likes his chocolate chip cookies Continue Pioglitazone 45 mg QD, Metformin 1000 mg BID and Glipizide 5 mg 1 tablet in AM and 2 tablets in PM for now He was also Tradjenta 5 mg QD in the past and was doing well on it but his insurance company increased the rangel of his co-pay for the medication and he could not afford to stay on his Rx; he went through the same issue with Januvia in the past He was also supposed to be on Trulicity 1.5 mg SQ once a week but states that he cannot afford the $86/month co-pay that his insurance is requiring him to cover We tried him on Alogliptin at one his previous appointment early last year (as this is the only one among the commercially available DPP-4 inhibitors that has a generic equivalent in the market at this time) - Rx for Alogliptin 25 mg QD was sent to his pharmacy but patient states that he never picked up his Rx Rx for Alogliptin 25 mg QD was sent in again but he did not fill his Rx as he could not afford the co-pay Will go ahead and refer him now to endocrinology for further management as I have advised patient that he is out of options at this point as he continues to not want to go on any injections or insulin for his diabetes He may also benefit from diabetic teaching as well as nutrition consult but states that he cannot afford the co-pays for his additional visits (3) Chronic kidney disease (CKD), stage III (moderate): Code(s): N18.30 - Chronic kidney disease, stage 3 unspecified Category: Medical Qualifiers: Chronic kidney disease stage 3 subtype: stage 3a (GFR 45-59) Qualified Code(s): N18.31 - Chronic kidney disease, stage 3a Plan: His renal function appears to have recovered on his recent labs - serum creatinine is now back to 1.28 and his GFR is up at 55 Have emphasized to patient again that the goal is to preserve his renal function for as long as possible and the best way to do this is with tight control of his diabetes and hypertension; he should also continue to try to maintain adequate hydration Will continue to monitor his GFR and renal function closely (4) Benign essential hypertension: Code(s): I10 - Essential (primary) hypertension Category: Medical Plan: Reinforced low sodium diet - goal is systolic BP of at least 130 to 140 mm or less in light of his CKD Continue Lisinopril 10 mg QD (5) Anemia: Code(s): D64.9 - Anemia, unspecified Category: Medical Qualifiers: Anemia type: unspecified type Qualified Code(s): D64.9 - Anemia, unspecified Plan: Mild, stable - is most likely due to CKD / anemia of chronic disease Will continue to monitor his CBC regularly (6) Dupuytren's contracture of both hands: Code(s): M72.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] Category: Medical Plan: Follow up with orthopedics as scheduled He has been recommended surgery but patient prefers to put this off for now (7) Hearing loss: Code(s): H91.90 - Unspecified hearing loss, unspecified ear Category: Medical Qualifiers: Hearing loss type: unspecified Laterality: unspecified laterality Qualified Code(s): H91.90 - Unspecified hearing loss, unspecified ear Plan: He was previously advised at his hearing exam last year that due to the presentation of his symptoms, should see ENT for further evaluation and management - he has been referred to ENT at his last visit and is currently still awaiting his appointment schedule (8) Foreign body of elbow: Code(s): S50.359A - Superficial foreign body of unspecified elbow, initial encounter Category: Medical Qualifiers: Encounter type: sequela Laterality: left Qualified Code(s): S50.352S - Superficial foreign body of left elbow, sequela Plan: X-rays of his left forearm/elbow done last month revealed (+) 5 mm subcutaneous foreign body at the posterior medial aspect of the proximal ulna Patient would like to see if this can be removed and if it should be removed but states that the lesion/nodule does not really hurt or bother him - will refer him to surgery for further management of this issue Plan Follow up in 4 months Orders: Orders Comprehensive [place]. Panel Fast 4 Months E78.00 - Pure hypercholesterolemia, unspecified Lipid Panel 4 Months E78.00 - Pure hypercholesterolemia, unspecified TSH reflex Free T4 4 Months E78.00 - Pure hypercholesterolemia, unspecified Hemoglobin A1c 4 Months E11.9 - Type 2 diabetes mellitus without complications Vitamin D 25-OH Total 4 Months E55.9 - Vitamin D deficiency, unspecified Complete Blood Count Auto Diff 4 Months D64.9 - Anemia, unspecified UA CC w/rflx Micro + Cult 4 Months R30.0 - Dysuria Microalbumin, Random (w Creat) 4 Months E11.9 - Type 2 diabetes mellitus without complications Referrals Endocrinology Referral E11.65 - Type 2 diabetes mellitus with hyperglycemia General Surgery Referral S50.359A - Superficial foreign body of unspecified elbow, initial encounter Medications: Changed From atorvastatin 20 mg PO DAILY 90 tabs 1RF E78.00 - Pure hypercholesterolemia, unspecified To atorvastatin 20 mg PO DAILY 90 days 90 tabs 1RF E78.00 - Pure hypercholesterolemia, unspecified
== END 2024-11-02 17:41 | disposition home or self-care (01) ==
PROVIDERS: PCP Internal Medicine; Visit Provider Internal Medicine
DX: E78.00 Pure hypercholesterolemia, unspecified (principal); E11.21 Type 2 diabetes mellitus with diabetic nephropathy; N18.31 Chronic kidney disease, stage 3a; I10 Essential (primary) hypertension; D64.9 Anemia, unspecified; M72.0 Palmar fascial fibromatosis [Dupuytren]; H91.90 Unspecified hearing loss, unspecified ear; S50.35 Superficial foreign body of elbow

== ENCOUNTER → 2024-11-02 17:00 | Outpatient (BNVA) | payer OTHER, SELFPAY | PROVIDERS: PCP Internal Medicine; Visit Provider Internal Medicine | DX: E78.00 Pure hypercholesterolemia, unspecified (principal); E11.22 Type 2 diabetes mellitus with diabetic chronic kidney disease; I12.9 Hypertensive chronic kidney disease with stage 1 through stage 4 chronic kidney disease, or unspecified chronic kidney disease; N18.31 Chronic kidney disease, stage 3a; D63.1 Anemia in chronic kidney disease; M72.0 Palmar fascial fibromatosis [Dupuytren]; H91.90 Unspecified hearing loss, unspecified ear; S50.35 Superficial foreign body of elbow; Z79.84 Long term (current) use of oral hypoglycemic drugs; Z79.899 Other long term (current) drug therapy | CPT/HCPCS: 96127 ==

== ENCOUNTER 2024-11-10 14:29 | Outpatient (AMB) | payer OTHER, SELFPAY ==
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
[2024-11-10 14:31] VITALS: BMI 23.9
== END 2024-11-10 15:01 | disposition home or self-care (01) ==
PROVIDERS: PCP Internal Medicine; Referring Provider Internal Medicine; Visit Provider Surgery
DX: R22.9 Localized swelling, mass and lump, unspecified (principal)
CPT/HCPCS: 99203

== ENCOUNTER → 2024-11-10 14:29 | Outpatient (BNVA) | payer OTHER, SELFPAY | PROVIDERS: PCP Internal Medicine; Referring Provider Internal Medicine; Visit Provider Surgery ==

== ENCOUNTER 2024-11-26 14:53 | Outpatient (AMB) | payer OTHER, SELFPAY ==
[2024-11-26 14:55] VITALS: BP 166/60; PULSE 74; O2SAT 93; BMI 24.7
--- NOTE | 2024-11-26 14:55 | A.OFFVIS_ITS ---
Vital Signs 11/26/24 14:55 Height 5 ft 8 in Weight 162 lb 4.163 oz BMI 24.7 BP 166/60 H Blood Pressure Location Lt brachial Position Sitting Pulse 74 Pulse Source Pulse Oximeter Pulse Oximetry (%) 93 Oxygen Delivery Method Room Air Intake Visit Reasons: Type 2 diabetes mellitus with hyperglycemia Intake Note: Patient present today for Type 2 Diabetes Mellitus Last Diabetic eye exam: 12/2023 Last Podiatry Visit: Doesn't have one Random Glucose: 203 mg/dl HgA1C: 9.3% 10/29/24 Veneer Jointer Offbearer Required: No Accompanied by: Spouse Allergies aspirin [Aspirin] Adverse Reaction (Severe, Verified 11/26/24 15:00) GI BLEEDING, GI bleed Medication List - Last Reconciled 11/26/24 by Odette Wilkins PA-C atorvastatin 20 mg PO DAILY 90 days blood sugar diagnostic As directed- One touch strips use daily blood-glucose meter As directed- One Touch use daily [DIABETIC SHOES As directed] [DIABETIC SHOES (1 pair) As directed] glipizide TAKE 1 TABLET BY MOUTH EVERY MORNING AND 2 TABLETS EVERY EVENING; lancets As directed One Touch use daily lisinopril 10 mg PO DAILY metformin 1,000 mg PO BID multivitamin (Daily Multi-Vitamin tablet) 1 tab PO DAILY pioglitazone 45 mg PO DAILY 90 days prasterone (dhea) (DHEA) 50 mg PO DAILY 90 days HPI HPI Type 2 diabetes mellitus with hyperglycemia: Details: Patient is a 74-year-old male with a significant past medical history of type 2 diabetes, chronic kidney disease, hypertension, hyperlipidemia, and anemia presenting today for consultation regarding his diabetes. This is his initial consult to endocrinology. Endo: DM-his most recent A1c was 9.3. He was diagnosed with diabetes in the mid . He is currently managed with pioglitazone 45 mg daily, metformin 1000 mg twice a day, glipizide 5 mg in the morning and 10 mg in the evening. -he could not afford [employer] co-pay, Januvia, Tradjenta and alogliptin -he has not like the idea of starting an injectable. He states that he will not do insulin and adamantly refuses this. Both parents had t2dm, brothers have dm and he thinks a couple of them have t1dm He states he has not had much diabetic education and does not know the differences between t2dm and t1dm. He states he was told he is a t2dm. His states that the diet could be a lot better but he does not want to give up his cookies. CV: Blood pressure today in the office is 166/60. He is currently on lisinopril 10 mg. Cholesterol is managed with atorvastatin 20 mg. Last LDL was 53. [facility] Medical History (Updated 11/10/24 @ 14:58 by Ky Whitt MD) Subcutaneous mass Foreign body (FB) in soft tissue Anemia Dupuytren's contracture of both hands Overweight (BMI 25.0-29.9) Pure hypercholesterolemia Benign essential hypertension Chronic kidney disease (CKD), stage III (moderate) Type 2 diabetes mellitus with diabetic chronic kidney disease Surgical History Hx of colonoscopy (~07/20/10) Family History Father Medical history unknown Mother Medical history unknown Social History Housing: House Alcohol intake: never Patient Tobacco Use Status: Former Tobacco user Tobacco use type: Cigarette e-Cigarette/Vaping Use: Never Used Second Hand Smoke Exposure: Yes service: No Current occupational status: retired Current occupation: retired [employer] Cognitive needs: No Hearing needs: Yes Vision needs: No Physical Exam Const Orientation/consciousness: patient oriented x3 Neck Neck: Yes no lymphadenopathy Thyroid: Thyroid normal Carotids: no bruits Resp Auscultation: clear to auscultation bilaterally Cardio Rate: regular rate Rhythm: regular rhythm Heart sounds: S1 normal heart sound present and S2 normal heart sound present Peripheral pulses: dorsalis pedis present Neuro General: patient oriented x3, gait normal and no focal motor deficits Extrem Other: Monofilament sensation intact bilaterally. Vibratory sensation intact bilaterally. Skin intact. General: Yes normal to inspection Results Reviewed Results Reviewed: Laboratory Tests 10/29/24 12:09 Sodium 136 Potassium 4.8 Chloride 106 Carbon Dioxide 27 Anion Gap 8 L BUN 25 H Creatinine 1.28 Estimated GFR 55 Fasting Glucose 199 H Hemoglobin A1c % 9.3 H Triglycerides 61 Cholesterol 118 LDL Cholesterol, Calc 53 HDL Cholesterol 53 Assessment & Plan Assessment & Plan (1) Uncontrolled diabetes mellitus with hyperglycemia: Code(s): E11.65 - Type 2 diabetes mellitus with hyperglycemia Category: Medical Plan: Spent 75 min in face to face time discussing the differences between t1dm and t2dm, complications associated diabetes such as kidney disease, blindness, infections, increased risks of heart attacks, strokes, amputations, etc. We discussed diet and lifestyle modifications. Advised to cutback on the cereal, soda, cookies, etc. Encouraged increased walking and more protein and vegetables in the diet. labs ordered prior to appointment will increase glipizide to 10 mg bid, start trulicity and continue other treatment plan as directed encouraged a sensor and offered this today but pt and his decline we discussed rules of 15s for treating hypoglycemia short term follow up in 3-4 weeks. (2) Benign essential hypertension: Code(s): I10 - Essential (primary) hypertension Category: Medical Plan: Blood pressure elevated today above goal. Last visit it was normal. (3) Chronic kidney disease (CKD), stage III (moderate): Code(s): N18.30 - Chronic kidney disease, stage 3 unspecified Category: Medical Qualifiers: Chronic kidney disease stage 3 subtype: stage 3a (GFR 45-59) Qualified Code(s): N18.31 - Chronic kidney disease, stage 3a Plan: Stable. Reminded him to avoid NSAIDs. Discussed the importance of diabetic co ntrol and blood pressure control. (4) Pure hypercholesterolemia: Code(s): E78.00 - Pure hypercholesterolemia, unspecified Category: Medical Plan: Continue current regimen. Orders: Orders Basic Metabolic Panel Today E11.65 - Type 2 diabetes mellitus with hyperglycemia, E78.00 - Pure hypercholesterolemia, unspecified, I10 - Essential (primary) hypertension, N18.31 - Chronic kidney disease, stage 3a C Peptide Today E11.65 - Type 2 diabetes mellitus with hyperglycemia, E78.00 - Pure hypercholesterolemia, unspecified, I10 - Essential (primary) hypertension, N18.31 - Chronic kidney disease, stage 3a Islet Cell Antibody Scrn/Titer Today E11.65 - Type 2 diabetes mellitus with hyperglycemia, E78.00 - Pure hypercholesterolemia, unspecified, I10 - Essential (primary) hypertension, N18.31 - Chronic kidney disease, stage 3a Glutamic acid decarboxylase Ab Today E11.65 - Type 2 diabetes mellitus with hyperglycemia, E78.00 - Pure hypercholesterolemia, unspecified, I10 - Essential (primary) hypertension, N18.31 - Chronic kidney disease, stage 3a B Type Natriuretic Peptide Today E11.65 - Type 2 diabetes mellitus with hyperglycemia, E78.00 - Pure hypercholesterolemia, unspecified, I10 - Essential (primary) hypertension, N18.31 - Chronic kidney disease, stage 3a Medications: New dulaglutide (Trulicity) 0.75 mg (0.5 mL) subcut QWEEK 2 mL 4RF glipizide 10 mg PO BID 180 tabs 0RF Discontinued glipizide Discontinued Reason: Doctor's Order TAKE 1 TABLET BY MOUTH EVERY MORNING AND 2 TABLETS EVERY EVENING; 270 tabs 1RF Patient Instructions: start trulicity in addition to metformin, actos, and glipizide. I have increased the glipizide to 10 mg twice a day Coding Level of Care Code New Pt Level 5 (80191) Complex EM visit Add On G2211 Diagnoses Uncontrolled diabetes mellitus with hyperglycemia E11.65 Benign essential hypertension I10 Stage 3a chronic kidney disease N18.31 Chronic kidney disease stage 3 subtype: stage 3a (GFR 45-59) Pure hypercholesterolemia E78.00
[2024-11-26 15:08] LABS: Glucose, Whole Blood 203 mg/dL (60-115)
== END 2024-11-26 15:43 | disposition home or self-care (01) ==
PROVIDERS: PCP Internal Medicine; Visit Provider Physician Assistant
DX: E11.65 Type 2 diabetes mellitus with hyperglycemia (principal); I10 Essential (primary) hypertension; N18.31 Chronic kidney disease, stage 3a; E78.00 Pure hypercholesterolemia, unspecified

== ENCOUNTER → 2024-11-26 14:53 | Outpatient (BNVA) | payer OTHER, SELFPAY | PROVIDERS: PCP Internal Medicine; Visit Provider Physician Assistant | DX: E11.65 Type 2 diabetes mellitus with hyperglycemia (principal); E11.22 Type 2 diabetes mellitus with diabetic chronic kidney disease; I12.9 Hypertensive chronic kidney disease with stage 1 through stage 4 chronic kidney disease, or unspecified chronic kidney disease; N18.31 Chronic kidney disease, stage 3a; E78.00 Pure hypercholesterolemia, unspecified | CPT/HCPCS: 82947 ==

== ENCOUNTER 2024-12-16 13:47 | Outpatient (AMB) | payer OTHER, SELFPAY ==
--- NOTE | 2024-12-16 13:48 | MHC.OFFVIS ---
Intake Visit Reasons: Excision of subcutaneous mass left elbow Intake Note: Office procedure: Excision of subcutaneous mass left elbow Editor Continuity And Script Required: No Accompanied by: Self / Same As Patient Allergies aspirin [Aspirin] Adverse Reaction (Severe, Verified 12/16/24 13:49) GI BLEEDING, GI bleed HPI HPI Excision of subcutaneous mass left elbow: Details: He is here for excision of a subcutaneous mass. [facility] Medical History Subcutaneous mass Foreign body (FB) in soft tissue Anemia Dupuytren's contracture of both hands Overweight (BMI 25.0-29.9) Pure hypercholesterolemia Benign essential hypertension Chronic kidney disease (CKD), stage III (moderate) Type 2 diabetes mellitus with diabetic chronic kidney disease Surgical History Hx of colonoscopy (~07/20/10) Family History Father Medical history unknown Mother Medical history unknown Social History Housing: House Alcohol intake: never Patient Tobacco Use Status: Former Tobacco user Tobacco use type: Cigarette e-Cigarette/Vaping Use: Never Used Second Hand Smoke Exposure: Yes service: No Current occupational status: retired Current occupation: retired [employer] Cognitive needs: No Hearing needs: Yes Vision needs: No Office Procedures Excision Details: He was placed in reclining position. The left arm was positioned to expose the area of the subcutaneous mass on the elbow. This area was prepped and draped. Lidocaine 1% was used for local anesthesia. I made a transverse incision on the skin overlying the subcutaneous mass using blade 15. This was carried down through the full-thickness of the skin. Then was able to visualize the mass. This was soft well-defined and about 1.2 cm. I sharply dissected this off of the rest of the subcutaneous layer circumferentially and this was delivered. I closed the incision with full-thickness nylon 3-0 simple interrupted sutures. Dressings were applied. He tolerated the procedure well. There were no immediate complications. There was minimal blood loss. 27561-zpoxv/arms/legs 1.1-2cm Procedure code (CPT) selection complete Assessment & Plan Assessment & Plan (1) Subcutaneous mass: Code(s): R22.9 - Localized swelling, mass and lump, unspecified Category: Medical Plan: Excision was done under local anesthesia. He tolerated the procedure well. I will see him in the office to remove the sutures in about 2 weeks. We will check the path report then. He can take Tylenol and ibuprofen for pain. Coding Level of Care Code Procedure Only Diagnoses Subcutaneous mass R22.9 CPT Codes Trunk/Arms/Legs - CPT: 95723-fyhsa/arms/legs 1.1-2cm ([id number])
== END 2024-12-16 14:09 | disposition home or self-care (01) ==
PROVIDERS: PCP Internal Medicine; Visit Provider Surgery
DX: R22.9 Localized swelling, mass and lump, unspecified (principal)
CPT/HCPCS: 11402

== ENCOUNTER 2024-12-16 13:47 | Outpatient (REF) | payer OTHER, SELFPAY | END 2024-12-16 13:48 | disposition home or self-care (01) | LOC: HO.LNP 13:47 | PROVIDERS: PCP Internal Medicine; Visit Provider Surgery | DX: R22.32 Localized swelling, mass and lump, left upper limb (principal) | CPT/HCPCS: 11402; 88304; 88305 ==

== ENCOUNTER 2024-12-24 14:59 | Outpatient (AMB) | payer OTHER, SELFPAY ==
[2024-12-24 15:03] VITALS: BP 130/80; PULSE 64; O2SAT 96; BMI 23.8
--- NOTE | 2024-12-24 15:03 | A.OFFVIS_ITS ---
Vital Signs 12/24/24 15:03 Height 5 ft 8 in Weight 156 lb 8.451 oz BMI 23.8 BP 130/80 Blood Pressure Location Rt brachial Position Sitting Pulse 64 Pulse Source Pulse Oximeter Pulse Oximetry (%) 96 Oxygen Delivery Method Room Air Intake Visit Reasons: DM Intake Note: Patient presents today for a follow-up on Type 2 Diabetes Mellitus: Last Diabetic eye exam was on: 12/2023 Last Podiatry exam was on: Patient does not see a Assistant Speech Language Pathologist Most recent HbA1c: 9.3%, 10/29/2024 Random Glucose- 185 mg/dL, Today Fuel Cell Binder Required: No Accompanied by: Significant Other Allergies aspirin [Aspirin] Adverse Reaction (Severe, Verified 12/24/24 15:10) GI BLEEDING, GI bleed Medication List - Last Reconciled 12/24/24 by Odette Wilkins PA-C atorvastatin 20 mg PO DAILY 90 days blood sugar diagnostic As directed- One touch strips use daily blood-glucose meter As directed- One Touch use daily [DIABETIC SHOES As directed] [DIABETIC SHOES (1 pair) As directed] glipizide 10 mg PO BID lancets As directed One Touch use daily lisinopril 10 mg PO DAILY metformin 1,000 mg PO BID multivitamin (Daily Multi-Vitamin tablet) 1 tab PO DAILY pioglitazone 45 mg PO DAILY 90 days prasterone (dhea) (DHEA) 50 mg PO DAILY 90 days HPI HPI DM: Details: Patient is a 74-year-old male with a significant past medical history of type 2 diabetes, chronic kidney disease, hypertension, hyperlipidemia, and anemia presenting today for a follow up for his diabetes. Endo: DM-his most recent A1c was 9.3. He was diagnosed with diabetes in the mid . He is currently managed with pioglitazone 45 mg daily, metformin 1000 mg twice a day, glipizide 10 mg bid. -he could not afford [employer]-pay, Januvia, Tradjenta and alogliptin -he has not like the idea of starting an injectable. He states that he will not do insulin and adamantly refuses this. He forgot to get labs prior to today's appointment. His blood sugars have been 120-150. Both parents had t2dm, brothers have dm and he thinks a couple of them have t1dm He states he has not had much diabetic education and does not know the differences between t2dm and t1dm. He states he was told he is a t2dm. His states that they are walking more, he's using a stationary bike for 30 mins a day, using tea and cinnamon. He has cutback significantly on cookies. They are incorporating more salads. He has lost 6 lbs since last visit. CV: Blood pressure today in the office is 130/80. He is currently on lisinopril 10 mg. Cholesterol is managed with atorvastatin 20 mg. Last LDL was 53. [facility] Medical History Subcutaneous mass Foreign body (FB) in soft tissue Anemia Dupuytren's contracture of both hands Overweight (BMI 25.0-29.9) Pure hypercholesterolemia Benign essential hypertension Chronic kidney disease (CKD), stage III (moderate) Type 2 diabetes mellitus with diabetic chronic kidney disease Surgical History Hx of colonoscopy (~07/20/10) Family History Father Medical history unknown Mother Medical history unknown Social History Housing: House Alcohol intake: never Patient Tobacco Use Status: Former Tobacco user Tobacco use type: Cigarette e-Cigarette/Vaping Use: Never Used Second Hand Smoke Exposure: Yes service: No Current occupational status: retired Current occupation: retired [employer] Cognitive needs: No Hearing needs: Yes Vision needs: No Physical Exam Vital Signs: BMI result Body Mass Index 23.8 Const Orientation/consciousness: patient oriented x3 HEENT Ears: hearing grossly normal bilaterally Neck Thyroid: Thyroid normal Lymphatic: no lymphadenopathy noted Resp Auscultation: clear to auscultation bilaterally Cardio Rate: regular rate Rhythm: regular rhythm Heart sounds: S1 normal heart sound present and S2 normal heart sound present Skin General skin exam: no rashes or lesions noted Neuro General: patient oriented x3, gait normal and no focal motor deficits Results Reviewed Results Reviewed: Laboratory Tests 10/29/24 10/29/24 11/26/24 12:09 12:10 15:03 Sodium 136 Potassium 4.8 Chloride 106 Carbon Dioxide 27 Anion Gap 8 L BUN 25 H Creatinine 1.28 Estimated GFR 55 Glucose (Clinic) 203 H Hemoglobin A1c % 9.3 H AST 22 ALT 20 Alkaline Phosphatase 62 Triglycerides 61 Cholesterol 118 LDL Cholesterol, Calc 53 HDL Cholesterol 53 Urine Creatinine 96.22 Urine Microalbumin 27.0 Microalb/Creat Ratio 28.0 Assessment & Plan Assessment & Plan (1) Type 2 diabetes mellitus with diabetic chronic kidney disease: Code(s): E11.22 - Type 2 diabetes mellitus with diabetic chronic kidney disease Category: Medical Qualifiers: Diabetes mellitus [employer] insulin use: without senior living use Chronic kidney disease stage: stage 3 (moderate) Chronic kidney disease stage 3 subtype: stage 3a (GFR 45-59) Qualified Code(s): E11.21 - Type 2 diabetes mellitus with diabetic nephropathy; N18.31 - Chronic kidney disease, stage 3a Plan: doing much better denies any low bs will call if anything changes continue current plan labs prior to next appointment f/u 3 months or sooner prn. (2) Benign essential hypertension: Code(s): I10 - Essential (primary) hypertension Category: Medical Plan: wnl continue current plan (3) Pure hypercholesterolemia: Code(s): E78.00 - Pure hypercholesterolemia, unspecified Category: Medical Plan: at goal continue current plan Medications: Discontinued dulaglutide (Trulicity) Discontinued Reason: Duplicate 0.75 mg (0.5 mL) subcut QWEEK 2 mL 4RF Coding Level of Care Code Est Pt Level 4 (56457) Complex EM visit Add On G2211 Diagnoses Type 2 diabetes mellitus with stage 3a chronic kidney disease, without long-term current use of insulin E11.21; N18.31 Diabetes mellitus [employer] insulin use: without [employer] use Chronic kidney disease stage: stage 3 (moderate) Chronic kidney disease stage 3 subtype: stage 3a (GFR 45-59) Benign essential hypertension I10 Pure hypercholesterolemia E78.00
[2024-12-24 15:12] LABS: Glucose, Whole Blood 185 mg/dL (60-115)
== END 2024-12-24 15:23 | disposition home or self-care (01) ==
LOC: HO.ENCR 14:59
PROVIDERS: PCP Internal Medicine; Visit Provider Physician Assistant
DX: E11.21 Type 2 diabetes mellitus with diabetic nephropathy (principal); N18.31 Chronic kidney disease, stage 3a; I10 Essential (primary) hypertension; E78.00 Pure hypercholesterolemia, unspecified

== ENCOUNTER → 2024-12-24 14:59 | Outpatient (BNVA) | payer OTHER, SELFPAY | PROVIDERS: PCP Internal Medicine; Visit Provider Physician Assistant | DX: E11.22 Type 2 diabetes mellitus with diabetic chronic kidney disease (principal); I12.9 Hypertensive chronic kidney disease with stage 1 through stage 4 chronic kidney disease, or unspecified chronic kidney disease; N18.31 Chronic kidney disease, stage 3a; E78.00 Pure hypercholesterolemia, unspecified | CPT/HCPCS: 82947 ==

== ENCOUNTER 2025-01-12 15:30 | Outpatient (AMB) | payer OTHER, SELFPAY ==
--- NOTE | 2025-01-12 15:32 | MHC.OFFVIS ---
Vital Signs 01/12/25 15:39 Height 5 ft 8 in Weight 155 lb BMI 23.6 BP 192/84 H Blood Pressure Location Rt brachial Position Sitting Pulse 65 Intake Visit Reasons: s/p suture removal Intake Note: Patient here s/p Lt elbow cyst excision on 12-16-2024. Reports incision healing well. Patient c/o: no concerns. 2 sutures removed without incident. Infectious Waste Technician Required: No Accompanied by: spouse Santa Allergies aspirin [Aspirin] Adverse Reaction (Severe, Verified 01/12/25 15:39) GI BLEEDING, GI bleed HPI HPI s/p suture removal: Details: He underwent excision of a subcutaneous mass from the left elbow under local anesthesia last 12/16/2024. He tolerated procedure well. He currently denies significant complaints. [facility] Medical History Subcutaneous mass Foreign body (FB) in soft tissue Anemia Dupuytren's contracture of both hands Overweight (BMI 25.0-29.9) Pure hypercholesterolemia Benign essential hypertension Chronic kidney disease (CKD), stage III (moderate) Type 2 diabetes mellitus with diabetic chronic kidney disease Surgical History Hx of colonoscopy (~07/20/10) Family History Father Medical history unknown Mother Medical history unknown Social History Housing: House Alcohol intake: never Patient Tobacco Use Status: Former Tobacco user Tobacco use type: Cigarette e-Cigarette/Vaping Use: Never Used Second Hand Smoke Exposure: Yes service: No Current occupational status: retired Current occupation: retired [employer] Cognitive needs: No Hearing needs: Yes Vision needs: No Review of Systems Const Denies chills and Denies fever(s) Physical Exam Const General: comfortable and no acute distress Resp Effort & Inspection: normal respiratory effort Extrem Other: Excision site is well healed, sutures intact, not infected Assessment & Plan Assessment & Plan (1) Subcutaneous mass: Code(s): R22.9 - Localized swelling, mass and lump, unspecified Category: Medical Plan: Status post excision. His path report shows a synovial line cavity suggestive of a ganglion cyst. There was no foreign body seen. His incision is well healed. His sutures were removed. He can follow up on a p.r.n. basis. Coding Level of Care Code Global (43033) Diagnoses Subcutaneous mass R22.9
[2025-01-12 15:39] VITALS: BP 192/84; PULSE 65; BMI 23.6
== END 2025-01-12 15:50 | disposition home or self-care (01) ==
PROVIDERS: PCP Internal Medicine; Visit Provider Surgery
DX: R22.9 Localized swelling, mass and lump, unspecified (principal)
CPT/HCPCS: 99024

== ENCOUNTER → 2025-01-12 15:30 | Outpatient (BNVA) | payer OTHER, SELFPAY | PROVIDERS: PCP Internal Medicine; Visit Provider Surgery ==

== ENCOUNTER 2025-02-15 07:34 | Outpatient (REF) | payer OTHER, SELFPAY ==
[2025-02-15 07:47] LABS: MANUAL DIFF FLAG NO
[2025-02-15 08:41] LABS: Basophils Percent Auto 0.4 % (0-2); Eosinophils Absolute Auto 0.2 X10*3/uL (0.0-0.4); Eosinophils Percent Auto 3.4 % (0-4); Hematocrit 32.7 % (42.0-52.0); Imm Gran Abs Auto 0.02 X10*3/uL (0.00-0.03); Imm Gran Pct Auto 0.3 % (0.0-0.4); Lymphocytes Absolute Auto 3.2 X10*3/uL (1.2-4.9); Lymphocytes Percent Auto 44.9 % (20-40); Mean Corpuscular HGB Conc 33.6 g/dl (31.0-36.0); Mean Corpuscular Hemoglobin 31.4 pg (27.0-33.0); Mean Corpuscular Volume 93.4 fL (80.0-98.0); Mean Platelet Volume 9.6 fL (9.4-12.4); Monocytes Absolute Auto 0.6 X10*3/uL (0.1-1.2); Monocytes Percent Auto 8.8 % (2-11); Neutrophils Percent Auto 42.2 % (45-73); Platelet Count 253 X10*3/uL (160-400); Red Cell Distribution Width 13.2 % (11.0-16.0); White Blood Count 7.1 X10*3/uL (4.8-10.8)
[2025-02-15 08:53] LABS: Estimated Average Glucose 197 mg/dL; Hemoglobin A1C 205.3578 umol/L; Hemoglobin A1c % 8.5 % (<6.0); Total Hemoglobin (HGBA1C) 2975.5668 umol/L
[2025-02-15 09:18] LABS: Alanine Aminotransferase 15 U/L (0-40); Albumin Level 4.3 g/dL (3.5-5.0); Alkaline Phosphatase 53 U/L (39-117); Anion Gap 14 (12-20); Aspartate Amino Transferase 23 U/L (5-37); Bilirubin Total 0.5 mg/dL (0.0-1.0); Blood Urea Nitrogen 23 mg/dL (9-16); Calcium 9.3 mg/dL (8.4-10.2); Carbon Dioxide 23 mmol/L (22-29); Chloride 105 mmol/L (96-108); Cholesterol 108 mg/dL (<200); Estimated Glomerular Filt Rate 58; Glucose Fasting 170 mg/dL (60-99); Potassium 4.5 mmol/L (3.3-5.1); Sodium 137 mmol/L (135-145); Total Protein 6.7 g/dL (6.5-8.0); Triglycerides 55 mg/dL (<150)
[2025-02-15 09:41] LABS: TSH reflex Free T4 5.09 uIU/mL (0.32-4.0); Vitamin D 25-OH Total 49.3 ng/mL (>30)
[2025-02-15 10:01] LABS: HDL Cholesterol 54 mg/dL (>40); LDL Cholesterol Calculated 43 mg/dL (<100)
[2025-02-15 10:12] LABS: Appearance Urine Clear; Color Urine Yellow; Glucose Urine UA Negative (Negative); Leukocyte Esterase Urine Negative (Negative); Nitrite Urine Negative (Negative); UMIC TRIGGER UACC YES; Urine Blood Trace (Negative); Urine Ketones Trace mg/dL (Negative); Urine Protein Negative (Neg-Trace)
[2025-02-15 10:14] LABS: Creatinine Urine 136.34 mg/dL; Microalbum/Creatinine Ratio Ur 38.8 ug/mg cr (<30)
[2025-02-15 11:57] LABS: Bacteria Urine None Seen (None Seen); Hyaline Casts Urine 0-2 /LPF (0-2); RBC Urine 0-2 /HPF (0-2); Squamous Epithelial Cell Urine 0-2 /HPF (0-2); WBC Urine 0-5 /HPF (0-5)
[2025-02-15 12:04] LABS: Free T4 (Free Thyroxine) 0.91 ng/dL (0.71-1.85)
== END 2025-02-15 07:35 | disposition home or self-care (01) ==
LOC: HO.LAB 07:34
PROVIDERS: PCP Internal Medicine; Visit Provider Internal Medicine
DX: E78.00 Pure hypercholesterolemia, unspecified (principal); E55.9 Vitamin D deficiency, unspecified; E11.9 Type 2 diabetes mellitus without complications; D64.9 Anemia, unspecified
CPT/HCPCS: 36415; 80053; 80061; 81001; 81003; 82043; 82306; 82570; 83036; 84439; 84443; 85025

== ENCOUNTER 2025-02-16 16:15 | Outpatient (AMB) | payer OTHER, SELFPAY ==
[2025-02-16 16:18] VITALS: BP 138/76; PULSE 68; O2SAT 98; BMI 23.6
--- NOTE | 2025-02-16 16:18 | MHC.PC.OV ---
Vital Signs 02/16/25 16:18 Height 5 ft 8 in Weight 155 lb 2 oz BMI 23.6 BP 138/76 Blood Pressure Location Lt brachial Position Sitting Pulse 68 Pulse Source Pulse Oximeter Pulse Oximetry (%) 98 Oxygen Delivery Method Room Air Intake Visit Reasons: 4 month f/u - see comments Bus System Operator Required: No Accompanied by: Self / Same As Patient Allergies aspirin [Aspirin] Adverse Reaction (Severe, Verified 02/16/25 16:31) GI BLEEDING, GI bleed Medication List - Last Reconciled 02/16/25 by Umesh Sanchez MD atorvastatin 20 mg PO DAILY 90 days blood sugar diagnostic As directed- One touch strips use daily blood-glucose meter As directed- One Touch use daily [DIABETIC SHOES As directed] [DIABETIC SHOES (1 pair) As directed] glipizide 10 mg PO BID lancets As directed One Touch use daily lisinopril 10 mg PO DAILY metformin 1,000 mg PO BID multivitamin (Daily Multi-Vitamin tablet) 1 tab PO DAILY pioglitazone 45 mg PO DAILY 90 days prasterone (dhea) (DHEA) 50 mg PO DAILY 90 days Tobacco use date assessed: 02/16/25 Fall risk assessment: No Falls in past year Last assessed Fall Risk: 02/16/25 Dental Screening Dental Screen Date: 11/02/24 Did you have a dental visit in the last 12 months?: Yes Did you have a dental problem in the last 6 months where you did not have access to dental care?: No Was dental information given to patient?: Patient has dentist HPI 4 month f/u - see comments HPI Details Patient comes in today for his follow up visit States that he feels okay He denies any headaches or dizziness Denies any chest pains, no SOB No nausea/vomiting, no abdominal pain No change in bowel habits noted States that he needs his glucometer test strips Rx refilled He had his follow up labs done yesterday - to discuss his results [facility] Medical History Subcutaneous mass Foreign body (FB) in soft tissue Anemia Dupuytren's contracture of both hands Overweight (BMI 25.0-29.9) Pure hypercholesterolemia Benign essential hypertension Chronic kidney disease (CKD), stage III (moderate) Type 2 diabetes mellitus with diabetic chronic kidney disease Surgical History Hx of colonoscopy (~07/20/10) Family History Father Medical history unknown Mother Medical history unknown Social History Housing: House Alcohol intake: never Patient Tobacco Use Status: Former Tobacco user Tobacco use type: Cigarette e-Cigarette/Vaping Use: Never Used Second Hand Smoke Exposure: Yes service: No Current occupational status: retired Current occupation: retired [employer] Cognitive needs: No Hearing needs: Yes Vision needs: No Questionnaire PHQ-9 Over the last 2 weeks, how often have you been bothered by any of the following problems? 1. Little interest or pleasure in doing things: not at all 2. Feeling down, depressed, or hopeless: not at all 3. Trouble falling or staying asleep, or sleeping too much: not at all 4. Feeling tired or having little energy: not at all 5. Poor appetite or overeating: not at all 6. Feeling bad about yourself - or that you are a failure or have let yourself or your family down: not at all 7. Trouble concentrating on things, such as reading the newspaper or watching television: not at all 8. Moving or speaking so slowly that other people could have noticed. Or the opposite - being so fidgety or restless that you have been moving around a lot more than usual: not at all 9. Thoughts that you would be better off or of hurting yourself in some way: not at all Total score: 0 Depression Screening Interpretation: Negative Depression Screening Done: Yes 04407 - PHQ-9 Billing: Yes Source: Developed by Drs. Rudi Jerry, Savi Truong, Pawel Pro and colleagues, with an educational julia from [employer]. Thrive Questionnaire Date Thrive assessed: 02/16/25 I am a: Patient What is your living situation today?: I have a steady place to live Within the past 12 months, did the food you bought not last and you didn't have the money to get more?: Never true Within the past 12 months, did you worry whether your food would run out before you got money to buy more?: Never true Do you have trouble paying for medicines?: No Do you have trouble getting transportation to medical appointments?: No Do you have trouble paying your heating and electricity bill?: No Do you have trouble taking care of your child, family member or friend?: No Do you have trouble with day-to-day activities such as bathing, preparing meals, shopping, managing finances, etc.?: No Are you currently unemployed and looking for a job?: No Are you interested in more education?: No Please select the resources that you would like help with: None Currently or been in a relationship where the following occur: No concerns reported THRIVE Score: 0 AUDIT C Alcohol Use Questionnaire (AUDIT-C) 1. How often do you have a drink containing alcohol?: Monthly or less 2. How many drinks containing alcohol do you have on a typical day when you are drinking?: 1 or 2 3. How often do you have six or more drinks on one occasion?: Never Total Score: 1 Score Reviewed/Action Taken: Yes KEATON-7 AMB Questionnaire KEATON-7 Date KEATON - 7 assessed: 11/02/24 Source: Developed by Drs. Rudi Jerry, Savi Truong, Pawel Pro and colleagues, with an educational julia from [employer]. Review of Systems Const Denies chills, Denies fatigue, Denies fever(s) and Denies headache(s) ENT Denies dysphagia, Denies dizziness, Denies otalgia, Denies headache(s), Reports hearing loss, Denies neck pain, Denies odynophagia and Denies sore throat Card Denies chest pain, Denies irregular heart rhythm, Denies palpitations and Denies dyspnea Resp Denies chest congestion, Denies cough and Denies dyspnea GI Denies abdominal pain, Denies constipation, Denies dysphagia, Denies heartburn, Denies diarrhea, Denies nausea, Denies odynophagia and Denies vomiting Denies dysuria, Denies nocturia and Denies urinary frequency Musc Reports back pain (over the lower back, only when he bends over - mild), Denies arthralgias and Denies neck pain Skin/Breast Denies rash Neuro Denies dizziness and Denies headache(s) Endo Denies fatigue and Denies palpitations Physical exam (Primary Care) Vital Signs: Last Vital Signs Pulse 68 02/16/25 16:18 BP 138/76 02/16/25 16:18 Pulse Ox 98 02/16/25 16:18 Oxygen Delivery Method Room Air 02/16/25 16:18 BMI result Body Mass Index 23.6 Tobacco/Smoking Status: Tobacco use Status Tobacco use date assessed 02/16/25 02/16/25 16:22 Patient Tobacco Use Status Former Tobacco user 02/16/25 16:22 Tobacco use type Cigarette 02/16/25 16:22 e-Cigarette/Vaping Use Never Used 02/16/25 16:22 PHQ-9: PHQ-9 Score PHQ-9: Total score 0 02/16/25 16:34 Depression Screening Interpretation: Negative Thrive Assessment: Date of Thrive Assessment Date Thrive assessed 02/16/25 02/16/25 16:34 Currently or been in a relationship where the following occur: No concerns reported Const General: no acute distress and alert HENMT Ears: TM's normal bilaterally and EAC's normal Throat: Yes posterior oropharynx normal and Yes tonsils normal Neck Neck: Yes supple and No lymphadenopathy Thyroid: Thyroid normal Resp Auscultation: clear to auscultation bilaterally, no rales and no wheezes Cardio Rate: regular rate Rhythm: regular rhythm Heart sounds: no murmurs GI Palpation (GI): Soft to palpation and nontender Auscultation: normal bowel sounds General: Yes no CVA tenderness Back/Spine/Pelvis Back: no CVA tenderness Cervical Spine: No Cervical spine tenderness Thoracic/Lumbar Spine: lumbar spinal tenderness (mild) Skin Rashes: no rashes Extrem General: Yes no clubbing, cyanosis or edema Results Reviewed Results Reviewed: Laboratory Tests 10/29/24 02/15/25 02/15/25 12:09 07:39 07:40 WBC 7.1 Hgb 11.0 L Hct 32.7 L Plt Count 253 D Sodium 137 Potassium 4.5 Creatinine 1.21 Estimated GFR 58 Fasting Glucose 170 H Hemoglobin A1c % 9.3 H 8.5 H Calcium 9.3 AST 23 ALT 15 Triglycerides 55 Cholesterol 108 LDL Cholesterol, Calc 43 HDL Cholesterol 54 25-OH Vitamin D Total 49.3 TSH 5.09 H Free T4 0.91 Ur Specific [place] 1.020 Urine Protein Negative Urine Glucose (UA) Negative Urine Blood Trace Urine Nitrite Negative Ur Leukocyte Esterase Negative Microalb/Creat Ratio 38.8 H Coding Level of Care Code Est Pt Level 4 (79503) Diagnoses Pure hypercholesterolemia E78.00 Type 2 diabetes mellitus with stage 3a chronic kidney disease, without long-term current use of insulin E11.21; N18.31 Chronic kidney disease stage: stage 3 (moderate) Chronic kidney disease stage 3 subtype: stage 3a (GFR 45-59) Diabetes mellitus terminal supervisor insulin use: without fci use Benign essential hypertension I10 Stage 3a chronic kidney disease N18.31 Chronic kidney disease stage 3 subtype: stage 3a (GFR 45-59) Anemia, unspecified type D64.9 Anemia type: unspecified type Dupuytren's contracture of both hands M72.0 Hearing loss, unspecified hearing loss type, unspecified laterality H91.90 Hearing loss type: unspecified Laterality: unspecified laterality Additional Codes PHQ-9 - 91230 - PHQ-9 Billing: Yes ([id number]) Assessment & Plan Assessment & Plan (1) Pure hypercholesterolemia: Code(s): E78.00 - Pure hypercholesterolemia, unspecified Category: Medical Plan: Results of his labs done yesterday reviewed and discussed with patient Reinforced low cholesterol diet Continue Atorvastatin 20 mg QD Will recheck his labs and fasting lipids in 4 months for follow-up (2) Type 2 diabetes mellitus with diabetic chronic kidney disease: Code(s): E11.22 - Type 2 diabetes mellitus with diabetic chronic kidney disease Category: Medical Qualifiers: Chronic kidney disease stage: stage 3 (moderate) Chronic kidney disease stage 3 subtype: stage 3a (GFR 45-59) Diabetes mellitus fci insulin use: without fci use Qualified Code(s): E11.21 - Type 2 diabetes mellitus with diabetic nephropathy; N18.31 - Chronic kidney disease, stage 3a Plan: His HgbA1c is at 8.5% on his labs done yesterday (was at 9.3% a few months ago) - goal is at least <7.5% Reinforced diabetic diet Continue Pioglitazone 45 mg QD, Metformin 1000 mg BID and Glipizide 10 mg BID He was tried on Tradjenta, Januvia, Alogliptin and Trulicity in the past but he could not afford the high co-pay for all of these Rx Follow up with endocrinology as scheduled (3) Benign essential hypertension: Code(s): I10 - Essential (primary) hypertension Category: Medical Plan: Reinforced low sodium diet - goal is systolic BP of at least 130 to 140 mm or less in light of his CKD Continue Lisinopril 10 mg QD (4) Chronic kidney disease (CKD), stage III (moderate): Code(s): N18.30 - Chronic kidney disease, stage 3 unspecified Category: Medical Qualifiers: Chronic kidney disease stage 3 subtype: stage 3a (GFR 45-59) Qualified Code(s): N18.31 - Chronic kidney disease, stage 3a Plan: His renal function appears stable again on his recent labs Have emphasized to patient again that the goal is to preserve his renal function for as long as possible and the best way to do this is with tight control of his diabetes and hypertension; he should also continue to try to maintain adequate hydration at all times Will continue to monitor his GFR and renal function closely (5) Anemia: Code(s): D64.9 - Anemia, unspecified Category: Medical Qualifiers: Anemia type: unspecified type Qualified Code(s): D64.9 - Anemia, unspecified Plan: Mild, stable - is most likely due to CKD / anemia of chronic disease Will continue to monitor his CBC regularly (6) Dupuytren's contracture of both hands: Code(s): M72.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] Category: Medical Plan: Follow up with orthopedics as scheduled He has been recommended surgery but patient prefers to put this off as much as possible (7) Hearing loss: Code(s): H91.90 - Unspecified hearing loss, unspecified ear Category: Medical Qualifiers: Hearing loss type: unspecified Laterality: unspecified laterality Qualified Code(s): H91.90 - Unspecified hearing loss, unspecified ear Plan: He was previously advised at his hearing exam last year that due to the presentation of his symptoms, should see ENT for further evaluation and management - he has been referred to ENT at his last visit and is currently still awaiting his appointment schedule Plan Follow up in 4 months Orders: Orders Lipid Panel 4 Months E78.00 - Pure hypercholesterolemia, unspecified Vitamin D 25-OH Total 4 Months E55.9 - Vitamin D deficiency, unspecified Hemoglobin A1c 4 Months E11.9 - Type 2 diabetes mellitus without complications Complete Blood Count Auto Diff 4 Months D64.9 - Anemia, unspecified Comprehensive [place]. Panel Fast 4 Months E78.00 - Pure hypercholesterolemia, unspecified TSH reflex Free T4 4 Months E78.00 - Pure hypercholesterolemia, unspecified UA CC w/rflx Micro + Cult 4 Months R30.0 - Dysuria Microalbumin, Random (w Creat) 4 Months E11.9 - Type 2 diabetes mellitus without complications Medications: Refilled blood sugar diagnostic As directed- One touch strips use daily 100 ea 3RF E11.21 - Type 2 diabetes mellitus with diabetic nephropathy, N18.31 - Chronic kidney disease, stage 3a
== END 2025-02-16 16:47 | disposition home or self-care (01) ==
LOC: HO.HMCH 16:16
PROVIDERS: PCP Internal Medicine; Visit Provider Internal Medicine
DX: E78.00 Pure hypercholesterolemia, unspecified (principal); E11.21 Type 2 diabetes mellitus with diabetic nephropathy; N18.31 Chronic kidney disease, stage 3a; I10 Essential (primary) hypertension; D64.9 Anemia, unspecified; M72.0 Palmar fascial fibromatosis [Dupuytren]; H91.90 Unspecified hearing loss, unspecified ear

== ENCOUNTER → 2025-02-16 16:15 | Outpatient (BNVA) | payer OTHER, SELFPAY | PROVIDERS: PCP Internal Medicine; Visit Provider Internal Medicine | DX: E78.00 Pure hypercholesterolemia, unspecified (principal); E11.22 Type 2 diabetes mellitus with diabetic chronic kidney disease; I12.9 Hypertensive chronic kidney disease with stage 1 through stage 4 chronic kidney disease, or unspecified chronic kidney disease; N18.31 Chronic kidney disease, stage 3a; D63.1 Anemia in chronic kidney disease; M72.0 Palmar fascial fibromatosis [Dupuytren]; H91.90 Unspecified hearing loss, unspecified ear; Z79.84 Long term (current) use of oral hypoglycemic drugs; Z79.899 Other long term (current) drug therapy | CPT/HCPCS: 96127 ==

== ENCOUNTER 2025-03-28 15:15 | Outpatient (AMB) | payer OTHER, SELFPAY ==
[2025-03-28 15:17] VITALS: BP 160/54; PULSE 56; O2SAT 98; BMI 23.6
--- NOTE | 2025-03-28 15:17 | A.OFFVIS_ITS ---
Vital Signs 03/28/25 15:17 Height 5 ft 8 in Weight 155 lb 3.287 oz BMI 23.6 BP 160/54 H Blood Pressure Location Lt brachial Position Sitting Pulse 56 Pulse Source Pulse Oximeter Pulse Oximetry (%) 98 Oxygen Delivery Method Room Air Intake Visit Reasons: T2DM Intake Note: Patient present today for Type 2 Diabetes Mellitus Last Diabetic eye exam: 01/19/25 Last Podiatry Visit: Doesn't have one Random Glucose: 134 mg/dl HgA1C: 8.5% 02/15/25 Lithostripper Required: No Accompanied by: Spouse Allergies aspirin [Aspirin] Adverse Reaction (Severe, Verified 03/28/25 15:23) GI BLEEDING, GI bleed Medication List - Last Reconciled 03/28/25 by Odette Wilkins PA-C atorvastatin 20 mg PO DAILY 90 days blood sugar diagnostic As directed- One touch strips use daily blood-glucose meter As directed- One Touch use daily [DIABETIC SHOES As directed] [DIABETIC SHOES (1 pair) As directed] glipizide 10 mg PO BID lancets As directed One Touch use daily lisinopril 10 mg PO DAILY metformin 1,000 mg PO BID multivitamin (Daily Multi-Vitamin tablet) 1 tab PO DAILY pioglitazone 45 mg PO DAILY 90 days prasterone (DHEA) (DHEA) 50 mg PO DAILY 90 days HPI HPI T2DM: Details: Patient is a 74-year-old male with a significant past medical history of type 2 diabetes, chronic kidney disease, hypertension, hyperlipidemia, and anemia presenting today for a follow up for his diabetes. Endo: DM-his most recent A1c was 8.5. He was diagnosed with diabetes in the mid . He is currently managed with pioglitazone 45 mg daily, metformin 1000 mg twice a day, glipizide 10 mg bid. Discussed trying jardiance but pt does not want to make any adjustments today. states this treatment plan is working for him and he is worried about switching. 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 He states that slowly the blood sugars are shifting and changing to a normal range. He has not noticed any hypoglycemic events. He states that he is eating a lot healthier and has cut out cookies. He is still drinking juice but is trying to dilute it. -His blood sugars he states are around 100-150. -he could not afford Trulicity co-pay, Januvia, Tradjenta and alogliptin -he has not like the idea of starting an injectable. He states that he will not do insulin and adamantly refuses this. He forgot to get labs prior to today's appointment again. Both parents had t2dm, brothers have dm and he thinks a couple of them have t1dm He states he was told he is a t2dm. CV: Blood pressure today in the office is 160/54. Last bps at home have been around 130/80. He is currently on lisinopril 10 mg. Cholesterol is managed with atorvastatin 20 mg. Last LDL was 43. [facility] Medical History Subcutaneous mass Foreign body (FB) in soft tissue Anemia Dupuytren's contracture of both hands Overweight (BMI 25.0-29.9) Pure hypercholesterolemia Benign essential hypertension Chronic kidney disease (CKD), stage III (moderate) Type 2 diabetes mellitus with diabetic chronic kidney disease Surgical History Hx of colonoscopy (~07/20/10) Family History Father Medical history unknown Mother Medical history unknown Social History Housing: House Alcohol intake: never Patient Tobacco Use Status: Former Tobacco user Tobacco use type: Cigarette e-Cigarette/Vaping Use: Never Used Second Hand Smoke Exposure: Yes service: No Current occupational status: retired Current occupation: retired [employer] Cognitive needs: No Hearing needs: Yes Vision needs: No Physical Exam Vital Signs: Last Vital Signs Pulse 56 03/28/25 15:17 BP 160/54 H 03/28/25 15:17 Pulse Ox 98 03/28/25 15:17 Oxygen Delivery Method Room Air 03/28/25 15:17 BMI result Body Mass Index 23.6 Const Orientation/consciousness: patient oriented x3 Neck Neck: Yes no lymphadenopathy Thyroid: Thyroid normal Carotids: no bruits Resp Auscultation: clear to auscultation bilaterally Cardio Rate: regular rate Rhythm: regular rhythm Heart sounds: S1 normal heart sound present and S2 normal heart sound present Neuro General: patient oriented x3, gait normal and no focal motor deficits Extrem General: Yes normal to inspection Results Reviewed Results Reviewed: Laboratory Last Values Glucose (Clinic) 134 mg/dL (60-115) H 03/28/25 15:25 Laboratory Tests 07/01/19 02/15/25 02/15/25 11:10 07:39 07:40 Creatinine 1.21 Estimated GFR 58 Fasting Glucose 170 H Hemoglobin A1c % 8.5 H Triglycerides 55 Cholesterol 108 LDL Cholesterol, Calc 43 HDL Cholesterol 54 Urine Creatinine 136.34 Urine Microalbumin 53.0 Microalb/Creat Ratio 38.8 H KEATON Antibody <5 Assessment & Plan Assessment & Plan (1) Uncontrolled diabetes mellitus with hyperglycemia: Code(s): E11.65 - Type 2 diabetes mellitus with hyperglycemia Category: Medical Plan: continue current plan we discussed adding medication. I spent extensive time discussing pros and cons to medications. He does not want to make any regimen change discussed risks of complications associated with uncontrolled diabetes including increased risk of stroke, heart attack, blindness, worsened kidney disease etc.. Follow up in 3 months. Sooner if needed (2) Chronic kidney disease (CKD), stage III (moderate): Code(s): N18.30 - Chronic kidney disease, stage 3 unspecified Category: Medical Qualifiers: Chronic kidney disease stage 3 subtype: stage 3a (GFR 45-59) Qualified Code(s): N18.31 - Chronic kidney disease, stage 3a Plan: Stable. Discussed the importance of glycemic control, blood pressure control and avoiding NSAIDs (3) Benign essential hypertension: Code(s): I10 - Essential (primary) hypertension Category: Medical Plan: Blood pressure today in the office is elevated and repeat blood pressure is 148/54. He will continue current regimen and watch his blood pressure at home. We will have a short term follow up and if still elevated discussed adjusting medication.. (4) Pure hypercholesterolemia: Code(s): E78.00 - Pure hypercholesterolemia, unspecified Category: Medical Plan: Continue atorvastatin 20 mg. Orders: Orders Hemoglobin A1c Today E11.65 - Type 2 diabetes mellitus with hyperglycemia, E78.00 - Pure hypercholesterolemia, unspecified, I10 - Essential (primary) hypertension, N18.31 - Chronic kidney disease, stage 3a, R73.01 - Impaired fasting glucose Comprehensive Met. Panel Today E11.65 - Type 2 diabetes mellitus with hyperglycemia, E78.00 - Pure hypercholesterolemia, unspecified, I10 - Essential (primary) hypertension, N18.31 - Chronic kidney disease, stage 3a Coding Level of Care Code Est Pt Level 4 (55638) Complex EM visit Add On [id number] Diagnoses Uncontrolled diabetes mellitus with hyperglycemia E11.65 Stage 3a chronic kidney disease N18.31 Chronic kidney disease stage 3 subtype: stage 3a (GFR 45-59) Benign essential hypertension I10 Pure hypercholesterolemia E78.00
[2025-03-28 15:28] LABS: Glucose, Whole Blood 134 mg/dL (60-115)
== END 2025-03-28 15:44 | disposition home or self-care (01) ==
LOC: HO.ENCR 15:16
PROVIDERS: PCP Internal Medicine; Visit Provider Physician Assistant
DX: E11.65 Type 2 diabetes mellitus with hyperglycemia (principal); N18.31 Chronic kidney disease, stage 3a; I10 Essential (primary) hypertension; E78.00 Pure hypercholesterolemia, unspecified

== ENCOUNTER → 2025-03-28 15:15 | Outpatient (BNVA) | payer OTHER, SELFPAY | PROVIDERS: PCP Internal Medicine; Visit Provider Physician Assistant | DX: E11.65 Type 2 diabetes mellitus with hyperglycemia (principal); E11.22 Type 2 diabetes mellitus with diabetic chronic kidney disease; I12.9 Hypertensive chronic kidney disease with stage 1 through stage 4 chronic kidney disease, or unspecified chronic kidney disease; E78.00 Pure hypercholesterolemia, unspecified; N18.31 Chronic kidney disease, stage 3a; E78.5 Hyperlipidemia, unspecified; D63.1 Anemia in chronic kidney disease; Z79.899 Other long term (current) drug therapy | CPT/HCPCS: 82947 ==

== ENCOUNTER 2025-06-25 09:47 | Outpatient (REF) | payer OTHER, SELFPAY ==
[2025-06-25 10:01] LABS: MANUAL DIFF FLAG NO
[2025-06-25 10:54] LABS: Hematocrit 31.8 % (42.0-52.0); Hemoglobin 10.8 g/dl (14.0-18.0); Imm Gran Abs Auto 0.03 X10*3/uL (0.00-0.03); Imm Gran Pct Auto 0.5 % (0.0-0.4); Lymphocytes Absolute Auto 2.5 X10*3/uL (1.2-4.9); Mean Corpuscular HGB Conc 34.0 g/dl (31.0-36.0); Mean Corpuscular Hemoglobin 32.0 pg (27.0-33.0); Mean Corpuscular Volume 94.4 fL (80.0-98.0); NRBC Abs Auto 0.000 X10*3/uL (0.0-0.012); NRBC Pct Auto 0.0 /100WBC (0.0-0.2); Platelet Count 244 X10*3/uL (160-400); Red Blood Count 3.37 X10*6/uL (4.60-5.80); White Blood Count 6.4 X10*3/uL (4.8-10.8)
[2025-06-25 11:01] LABS: Hemoglobin A1C 202.5033 umol/L; Total Hemoglobin (HGBA1C) 2846.6133 umol/L
[2025-06-25 11:59] LABS: B Type Natriuretic Peptide 27 pg/mL (<100)
[2025-06-25 12:03] LABS: Appearance Urine Clear; Glucose Urine UA Negative (Negative); PH 5.5 (5.0-9.0); Specific Gravity - Urine 1.010 (1.005-1.025)
[2025-06-25 12:03] LABS: Alanine Aminotransferase 18 U/L (0-40); Albumin Level 4.4 g/dL (3.5-5.0); Alkaline Phosphatase 53 U/L (39-117); Anion Gap 15 (12-20); Aspartate Amino Transferase 26 U/L (5-37); Blood Urea Nitrogen 27 mg/dL (9-16); Calcium 9.6 mg/dL (8.4-10.2); Carbon Dioxide 23 mmol/L (22-29); Chloride 107 mmol/L (96-108); Cholesterol 113 mg/dL (<200); Estimated Glomerular Filt Rate 48; HDL Cholesterol 51 mg/dL (>40); Potassium 5.0 mmol/L (3.3-5.1); Sodium 140 mmol/L (135-145); Total Protein 6.7 g/dL (6.5-8.0); Triglycerides 48 mg/dL (<150)
== END 2025-06-25 09:48 | disposition home or self-care (01) ==
LOC: HO.LAB 09:47
PROVIDERS: Absent Provider Internal Medicine; PCP Internal Medicine; Visit Provider Physician Assistant
DX: I12.9 Hypertensive chronic kidney disease with stage 1 through stage 4 chronic kidney disease, or unspecified chronic kidney disease (principal); N18.31 Chronic kidney disease, stage 3a; R30.0 Dysuria; E78.00 Pure hypercholesterolemia, unspecified; E55.9 Vitamin D deficiency, unspecified; E11.9 Type 2 diabetes mellitus without complications; D64.9 Anemia, unspecified; E11.65 Type 2 diabetes mellitus with hyperglycemia
CPT/HCPCS: 36415; 80053; 80061; 81003; 82043; 82306; 82570; 83036; 83880; 84443; 84681; 85025; 86341

== ENCOUNTER 2025-07-01 15:57 | Outpatient (AMB) | payer OTHER, SELFPAY ==
[2025-07-01 16:03] VITALS: BP 142/52; PULSE 59; RESP 18; TEMP 36.3; O2SAT 97; BMI 23.2
--- NOTE | 2025-07-01 16:03 | A.OFFPC_ITS ---
Vital Signs 07/01/25 16:03 Height 5 ft 8 in Weight 152 lb 8 oz BMI 23.2 BP 142/52 H Blood Pressure Location Lt brachial Position Sitting Respiration 18 Pulse 59 Pulse Source Pulse Oximeter Temp 97.3 F Temp Source Temporal Artery Scan Pulse Oximetry (%) 97 Oxygen Delivery Method Room Air Intake Visit Reasons: DM, CKD, hyperlipidemia, HTN Medical Researcher Required: No Accompanied by: Self / Same As Patient Allergies aspirin (Aspirin) Adverse Reaction (Severe, Verified 07/01/25 16:21) GI BLEEDING, GI bleed Medication List - Last Reconciled 07/01/25 by Umesh Sanchez MD atorvastatin 20 mg PO DAILY 90 days blood sugar diagnostic (Contour Plus Test Strip) As directed Once daily blood-glucose meter (Contour Plus Blue Meter) As directed cyanocobalamin (vitamin B-12) ER (Vitamin B-12 ER) 2,000 mcg PO DAILY [DIABETIC SHOES As directed] [DIABETIC SHOES (1 pair) As directed] glipizide 10 mg PO BID lancets As directed One Touch use daily lisinopril 10 mg PO DAILY metformin 1,000 mg PO BID multivitamin (Daily Multi-Vitamin tablet) 1 tab PO DAILY omega 1-jan-qgg-fish oil 1,000 (120-180) mg (Fish Oil) 1 cap PO DAILY pioglitazone 45 mg PO DAILY 90 days prasterone (DHEA) (DHEA) 50 mg PO DAILY 90 days Tobacco use date assessed: 07/01/25 Fall risk assessment: No Falls in past year Last assessed Fall Risk: 07/01/25 Dental Screening Dental Screen Date: 07/01/25 Did you have a dental visit in the last 12 months?: Yes Did you have a dental problem in the last 6 months where you did not have access to dental care?: No Was dental information given to patient?: Patient has dentist HPI DM, CKD, hyperlipidemia, HTN HPI Details Patient comes in today for his follow up visit States that he feels okay He denies any headaches or dizziness Denies any chest pains, no increased shortness of breath No nausea/vomiting, no abdominal pain No change in bowel habits noted He had his follow up labs done last week - to discuss his results [facility] Medical History Subcutaneous mass Foreign body (FB) in soft tissue Anemia Dupuytren's contracture of both hands Overweight (BMI 25.0-29.9) Pure hypercholesterolemia Benign essential hypertension Chronic kidney disease (CKD), stage III (moderate) Type 2 diabetes mellitus with diabetic chronic kidney disease Surgical History Hx of colonoscopy (~07/20/10) Family History Father Medical history unknown Mother Medical history unknown Social History Housing: House Alcohol intake: never Patient Tobacco Use Status: Former Tobacco user Tobacco use type: Cigarette e-Cigarette/Vaping Use: Never Used Second Hand Smoke Exposure: Yes service: No Current occupational status: retired Current occupation: retired [employer] Cognitive needs: No Hearing needs: Yes Vision needs: No Questionnaire PHQ-9 Over the last 2 weeks, how often have you been bothered by any of the following problems? Depression Screening Interpretation: Negative Depression Screening Done: Yes Source: Developed by Drs. Rudi Jerry, Savi Truong, Pawel Pro and colleagues, with an educational julia from [employer]. Thrive Questionnaire Date Thrive assessed: 02/16/25 Currently or been in a relationship where the following occur: No concerns reported THRIVE Score: 0 KEATON-7 AMB Questionnaire KEATON-7 Date KEATON - 7 assessed: 11/02/24 Source: Developed by Drs. Rudi Jerry, Savi Truong, Pawel Pro and colleagues, with an educational julia from [employer]. Review of Systems Const Denies chills, Denies fatigue, Denies fever(s) and Denies headache(s) ENT Denies dysphagia, Denies dizziness, Denies otalgia, Denies headache(s), Reports hearing loss, Denies neck pain, Denies odynophagia and Denies sore throat Card Denies chest pain, Denies irregular heart rhythm, Denies palpitations and Denies dyspnea Resp Denies chest congestion, Denies cough and Denies dyspnea GI Denies abdominal pain, Denies constipation, Denies dysphagia, Denies heartburn, Denies diarrhea, Denies nausea, Denies odynophagia and Denies vomiting Denies dysuria, Denies nocturia and Denies urinary frequency Musc Reports back pain (over the lower back, only when he bends over - mild), Denies arthralgias and Denies neck pain Skin/Breast Denies rash Neuro Denies dizziness and Denies headache(s) Endo Denies fatigue and Denies palpitations Physical exam (Primary Care) Vital Signs: Last Vital Signs Temp 97.3 F 07/01/25 16:03 Pulse 59 07/01/25 16:03 Resp 18 07/01/25 16:03 BP 142/52 H 07/01/25 16:03 Pulse Ox 97 07/01/25 16:03 Oxygen Delivery Method Room Air 07/01/25 16:03 BMI result Body Mass Index 23.2 Tobacco/Smoking Status: Tobacco use Status Tobacco use date assessed 07/01/25 07/01/25 16:11 Patient Tobacco Use Status Former Tobacco user 07/01/25 16:03 Tobacco use type Cigarette 07/01/25 16:03 e-Cigarette/Vaping Use Never Used 07/01/25 16:03 Depression Screening Interpretation: Negative Thrive Assessment: Date of Thrive Assessment Date Thrive assessed 02/16/25 07/01/25 16:03 Currently or been in a relationship where the following occur: No concerns reported Const General: no acute distress and alert HENMT Ears: TM's normal bilaterally and EAC's normal Throat: Yes posterior oropharynx normal and Yes tonsils normal Neck Neck: Yes supple and No lymphadenopathy Thyroid: Thyroid normal Resp Auscultation: clear to auscultation bilaterally, no rales and no wheezes Cardio Rate: regular rate Rhythm: regular rhythm Heart sounds: no murmurs GI Palpation (GI): Soft to palpation and nontender Auscultation: normal bowel sounds General: Yes no CVA tenderness Back/Spine/Pelvis Back: no CVA tenderness Cervical Spine: No Cervical spine tenderness Thoracic/Lumbar Spine: lumbar spinal tenderness (mild) Skin Rashes: no rashes Extrem General: Yes no clubbing, cyanosis or edema Results Reviewed Results Reviewed: Laboratory Tests 06/25/25 06/25/25 09:50 09:59 WBC 6.4 Hgb 10.8 L Hct 31.8 L Plt Count 244 Sodium 140 Potassium 5.0 Creatinine 1.43 H Estimated GFR 48 Fasting Glucose 170 H Hemoglobin A1c % 8.7 H C-Peptide 1.72 Calcium 9.6 AST 26 ALT 18 Triglycerides 48 Cholesterol 113 LDL Cholesterol, Calc 53 HDL Cholesterol 51 25-OH Vitamin D Total 52.2 TSH 3.70 Ur Specific [place] 1.010 Urine Protein Negative Urine Glucose (UA) Negative Urine Blood Negative Urine Nitrite Negative Ur Leukocyte Esterase Negative Islet Cell Ab Screen NEGATIVE Islet Cell Ab Titer TNP KEATON Antibody <5 Coding Level of Care Code Est Pt Level 4 (35837) Diagnoses Pure hypercholesterolemia E78.00 Type 2 diabetes mellitus with stage 3a chronic kidney disease, without long-term current use of insulin E11.21; N18.31 Chronic kidney disease stage: stage 3 (moderate) Chronic kidney disease stage 3 subtype: stage 3a (GFR 45-59) Diabetes mellitus ocean transportation intermediary insulin use: without ocean transportation intermediary use Benign essential hypertension I10 Stage 3a chronic kidney disease N18.31 Chronic kidney disease stage 3 subtype: stage 3a (GFR 45-59) Anemia, unspecified type D64.9 Anemia type: unspecified type Dupuytren's contracture of both hands M72.0 Hearing loss, unspecified hearing loss type, unspecified laterality H91.90 Hearing loss type: unspecified Laterality: unspecified laterality Assessment & Plan Assessment & Plan (1) Pure hypercholesterolemia: Code(s): E78.00 - Pure hypercholesterolemia, unspecified Category: Medical Plan: Results of his labs done last week reviewed and discussed with patient Reinforced low cholesterol diet Continue Atorvastatin 20 mg QD Will recheck his labs and fasting lipids in 4 months for follow-up (2) Type 2 diabetes mellitus with diabetic chronic kidney disease: Code(s): E11.22 - Type 2 diabetes mellitus with diabetic chronic kidney disease Category: Medical Qualifiers: Chronic kidney disease stage: stage 3 (moderate) Chronic kidney disease stage 3 subtype: stage 3a (GFR 45-59) Diabetes mellitus ocean transportation intermediary insulin use: without ocean transportation intermediary use Qualified Code(s): E11.21 - Type 2 diabetes mellitus with diabetic nephropathy; N18.31 - Chronic kidney disease, stage 3a Plan: His HgbA1c was at 8.7% on his labs done last week (was previously at 8.5% a few months ago) - goal is at least <7.5% Reinforced diabetic diet Continue Pioglitazone 45 mg QD, Metformin 1000 mg BID and Glipizide 10 mg BID He was tried on Tradjenta, Januvia, Alogliptin and Trulicity in the past but he could not afford the high co-pay for all of these Rx Follow up with endocrinology as scheduled (3) Benign essential hypertension: Code(s): I10 - Essential (primary) hypertension Category: Medical Plan: Reinforced low sodium diet - goal is systolic BP of at least 130 to 140 mm or less in light of his CKD Continue Lisinopril 10 mg QD (4) Chronic kidney disease (CKD), stage III (moderate): Code(s): N18.30 - Chronic kidney disease, stage 3 unspecified Category: Medical Qualifiers: Chronic kidney disease stage 3 subtype: stage 3a (GFR 45-59) Qualified Code(s): N18.31 - Chronic kidney disease, stage 3a Plan: His renal function appears stable again on his recent labs Have emphasized to patient again that the goal is to preserve his renal function for as long as possible and the best way to do this is with tight control of his diabetes and hypertension; he should also continue to try to maintain adequate hydration at all times Will continue to monitor his GFR and renal function closely (5) Anemia: Code(s): D64.9 - Anemia, unspecified Category: Medical Qualifiers: Anemia type: unspecified type Qualified Code(s): D64.9 - Anemia, unspecified Plan: Mild, stable - is most likely due to CKD / anemia of chronic disease Will continue to monitor his CBC regularly (6) Dupuytren's contracture of both hands: Code(s): M72.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] Category: Medical Plan: Follow up with orthopedics as scheduled He has been recommended surgery but patient prefers to put this off as much as possible (7) Hearing loss: Code(s): H91.90 - Unspecified hearing loss, unspecified ear Category: Medical Qualifiers: Hearing loss type: unspecified Laterality: unspecified laterality Qualified Code(s): H91.90 - Unspecified hearing loss, unspecified ear Plan: He was previously advised at his hearing exam last year that due to the presentation of his symptoms, should see ENT for further evaluation and management - he has been referred to ENT at his last visit and is currently still awaiting his appointment schedule Plan Follow up in 4 months Orders: Orders Microalbumin, Random (w Creat) 4 Months E11.9 - Type 2 diabetes mellitus without complications UA CC w/rflx Micro + Cult 4 Months R30.0 - Dysuria Vitamin D 25-OH Total 4 Months E55.9 - Vitamin D deficiency, unspecified Hemoglobin A1c 4 Months E11.9 - Type 2 diabetes mellitus without complications Complete Blood Count Auto Diff 4 Months D64.9 - Anemia, unspecified Comprehensive [place]. Panel Fast 4 Months E78.00 - Pure hypercholesterolemia, unspecified Lipid Panel 4 Months E78.00 - Pure hypercholesterolemia, unspecified TSH reflex Free T4 4 Months E78.00 - Pure hypercholesterolemia, unspecified
== END 2025-07-01 16:35 | disposition home or self-care (01) ==
LOC: HO.HMCH 15:58
PROVIDERS: PCP Internal Medicine; Visit Provider Internal Medicine
DX: E78.00 Pure hypercholesterolemia, unspecified (principal); E11.21 Type 2 diabetes mellitus with diabetic nephropathy; N18.31 Chronic kidney disease, stage 3a; I10 Essential (primary) hypertension; D64.9 Anemia, unspecified; M72.0 Palmar fascial fibromatosis [Dupuytren]; H91.90 Unspecified hearing loss, unspecified ear

== ENCOUNTER 2025-07-22 15:10 | Outpatient (AMB) | payer OTHER, SELFPAY ==
[2025-07-22 15:12] VITALS: BP 128/76; PULSE 81; O2SAT 97; BMI 23.7
--- NOTE | 2025-07-22 15:12 | A.OFFVIS_ITS ---
Vital Signs 07/22/25 15:12 Height 5 ft 8 in Weight 155 lb 13.869 oz BMI 23.7 BP 128/76 Blood Pressure Location Rt brachial Position Sitting Pulse 81 Pulse Source Pulse Oximeter Pulse Oximetry (%) 97 Oxygen Delivery Method Room Air Intake Visit Reasons: T2DM Intake Note: Patient present today for Type 2 Diabetes Mellitus Last Diabetic eye exam:?January 19 Last Podiatry Visit:?Does not have stock layer. Random Glucose:?143 mg/dl HgA1C: Lease Examiner Required: No Accompanied by: Significant Other Allergies aspirin (Aspirin) Adverse Reaction (Severe, Verified 07/22/25 15:20) GI BLEEDING, GI bleed Medication List - Last Reconciled 07/22/25 by Odette Wilkins PA-C atorvastatin 20 mg PO DAILY 90 days blood sugar diagnostic (Contour Plus Test Strip) As directed Once daily blood-glucose meter (Contour Plus Blue Meter) As directed cyanocobalamin (vitamin B-12) ER (Vitamin B-12 ER) 2,000 mcg PO DAILY [DIABETIC SHOES As directed] [DIABETIC SHOES (1 pair) As directed] glipizide 10 mg PO BID lancets As directed One Touch use daily lisinopril 10 mg PO DAILY metformin 1,000 mg PO BID multivitamin (Daily Multi-Vitamin tablet) 1 tab PO DAILY omega 3-gih-dty-fish oil 1,000 (120-180) mg (Fish Oil) 1 cap PO DAILY pioglitazone 45 mg PO DAILY 90 days prasterone (DHEA) (DHEA) 50 mg PO DAILY 90 days HPI HPI T2DM: Details: Patient is a 74-year-old male with a significant past medical history of type 2 diabetes, chronic kidney disease, hypertension, hyperlipidemia, and anemia presenting today for a follow up for his diabetes. Endo: DM-his most recent A1c was 8.7. He was diagnosed with diabetes in the mid . He is currently managed with pioglitazone 45 mg daily, metformin 1000 mg twice a day, glipizide 10 mg bid. states blood sugars have been good. Bs the last few readings have been 107, 98, 122. Highest reading was 150. He is on a Parsons diet with mc chickens sandwhiches, tuna salad with mac n cheese, states they are healthy. 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 -His blood sugars he states are around 100-150. -he could not afford Trulicity co-pay, Januvia, Tradjenta and alogliptin, does not want jardiance -he has not like the idea of starting an injectable. He states that he will not do insulin and adamantly refuses this. He forgot to get labs prior to today's appointment again. Both parents had t2dm, brothers have dm and he thinks a couple of them have t1dm He is a confirmed t2dm. CV: Blood pressure today in the office is 128/76. He is currently on lisinopril 10 mg. Cholesterol is managed with atorvastatin 20 mg. Last LDL was 43. [facility] Medical History Subcutaneous mass Foreign body (FB) in soft tissue Anemia Dupuytren's contracture of both hands Overweight (BMI 25.0-29.9) Pure hypercholesterolemia Benign essential hypertension Chronic kidney disease (CKD), stage III (moderate) Type 2 diabetes mellitus with diabetic chronic kidney disease Surgical History Hx of colonoscopy (~07/20/10) Family History Father Medical history unknown Mother Medical history unknown Social History Housing: House Alcohol intake: never Patient Tobacco Use Status: Former Tobacco user Tobacco use type: Cigarette e-Cigarette/Vaping Use: Never Used Second Hand Smoke Exposure: Yes service: No Current occupational status: retired Current occupation: retired [employer] Cognitive needs: No Hearing needs: Yes Vision needs: No Physical Exam Vital Signs: Last Vital Signs Pulse 81 07/22/25 15:12 BP 128/76 07/22/25 15:12 Pulse Ox 97 07/22/25 15:12 Oxygen Delivery Method Room Air 07/22/25 15:12 BMI result Body Mass Index 23.7 Const Orientation/consciousness: patient oriented x3 HEENT Ears: hearing grossly normal bilaterally Neck Thyroid: Thyroid normal Lymphatic: no lymphadenopathy noted Resp Auscultation: clear to auscultation bilaterally Cardio Rate: regular rate Rhythm: regular rhythm Heart sounds: S1 normal heart sound present and S2 normal heart sound present Skin General skin exam: no rashes or lesions noted Neuro General: patient oriented x3, gait normal and no focal motor deficits Results AMB Hemoglobin A1c AMB Hemoglobin A1c 8.0 % Last Edit by Viviana Cuenca CMA on 07/22/25 15:35 Results Reviewed Results Reviewed: Laboratory Last Values Glucose (Clinic) 143 mg/dL (60-115) H 07/22/25 15:19 Laboratory Tests 06/25/25 06/25/25 09:50 09:59 Creatinine 1.43 H Estimated GFR 48 Random Glucose 169 H Hemoglobin A1c % 8.7 H Triglycerides 48 Cholesterol 113 LDL Cholesterol, Calc 53 HDL Cholesterol 51 Urine Creatinine 36.58 Urine Microalbumin < 5.0 Islet Cell Ab Screen NEGATIVE KEATON Antibody <5 Assessment & Plan Assessment & Plan (1) Uncontrolled diabetes mellitus with hyperglycemia: Code(s): E11.65 - Type 2 diabetes mellitus with hyperglycemia Category: Medical Plan: continue current plan a1c reduced he does not want to adjust medication referral to nurses navigator for questions regarding insurance plans we discussed adding medication. I spent extensive time discussing pros and cons to medications. He does not want to make any regimen change discussed risks of complications associated with uncontrolled diabetes including increased risk of stroke, heart attack, blindness, worsened kidney disease etc.. Follow up in 3 months. Sooner if needed Orders: Orders AMB Hemoglobin A1c Today E11.65 - Type 2 diabetes mellitus with hyperglycemia Referrals Nurse Navigator Referral E11.65 - Type 2 diabetes mellitus with hyperglycemia Coding Level of Care Code Est Pt Level 4 (15010) Complex EM visit Add On G2211 Diagnoses Uncontrolled diabetes mellitus with hyperglycemia E11.65
[2025-07-22 15:23] LABS: Glucose, Whole Blood 143 mg/dL (60-115)
== END 2025-07-22 15:37 | disposition home or self-care (01) ==
LOC: HO.ENCR 15:10
PROVIDERS: PCP Internal Medicine; Visit Provider Physician Assistant
DX: E11.65 Type 2 diabetes mellitus with hyperglycemia (principal)

== ENCOUNTER → 2025-07-22 15:10 | Outpatient (BNVA) | payer OTHER, SELFPAY | PROVIDERS: PCP Internal Medicine; Visit Provider Physician Assistant | DX: E11.65 Type 2 diabetes mellitus with hyperglycemia (principal); I12.9 Hypertensive chronic kidney disease with stage 1 through stage 4 chronic kidney disease, or unspecified chronic kidney disease; E11.22 Type 2 diabetes mellitus with diabetic chronic kidney disease; N18.9 Chronic kidney disease, unspecified; Z79.899 Other long term (current) drug therapy | CPT/HCPCS: 82947; 83036 ==